=== PATIENT | male | born 1945 | race African-American/Black ===

== ENCOUNTER 2018-07-29 15:17 | Emergency (ER) | payer MEDICARE, OTHER ==
[2018-07-29] MEDS ORDERED: RINGERS SOLUTION,LACTATED 1,000 ML IV ONE (16:01)
--- NOTE | 2018-07-29 16:41 | ER Document Report ---
ED General <YANET BALDWIN - Last Filed: 07/30/18 00:16> - General Mode of Arrival: Ambulatory Information source: Patient, [facility] Records TRAVEL OUTSIDE OF THE [place] IN LAST 30 DAYS: No - HPI Onset: Yesterday Onset/Duration: Sudden, Gone Quality of pain: No pain Severity: None Pain Level: Denies Associated symptoms: Nausea - Resolved, Vomiting - Resolved, Shortness of breath - Resolved, Weakness. denies: Chest pain, Chills, Nonproductive cough, Productive cough, Diarrhea, Fever Exacerbated by: Denies Relieved by: Denies Similar symptoms previously: No Recently seen / treated by doctor: No <OCTAVIA BRO - Last Filed: 07/30/18 15:10> - General Chief Complaint: Fall Injury Stated Complaint: FALL Time Seen by Provider: 07/29/18 15:53 [facility] - Follow up as needed Notes: 73-year-old male with hypertension, type 2 diabetes, hyperlipidemia presents with complaint of weakness. Patient states that last night he had an episode of vomiting and shortness of breath. He states that he threw up all over the bathroom and then lowered himself to the floor. He denies falling, hitting his head, loss of consciousness. He states that when he went to bed he also had another experience of nausea and shortness of breath and describes deep heavy breathing that resolved on its own. Today the patient's only complaint is weakness. He denies headache, chest pain, shortness of breath, palpitations, abdominal pain, diarrhea, decreased appetite. Patient states that he came in to day because his daughter "fussed at me". Patient does smoke approximately 3 cigarettes/day. He repeatedly states "I am in perfect health, I feel hung over but I have not drank in 30 years" (OCTAVIA BRO) - Related Data Allergies/Adverse Reactions: No Known Allergies Allergy (Verified 07/29/18 15:21) Past Medical History - General Information source: Patient, [facility] Records - Social History Smoking Status: Current Every Day Smoker Cigarette use (# per day): Yes - 1 Smoking Education Provided: Yes - Smoking cessation counseling was provided for 4 minutes at the bedside Frequency of alcohol use: None Drug Abuse: None Lives with: Family Family History: Reviewed & Not Pertinent Patient has suicidal ideation: No Patient has homicidal ideation: No - Past Medical History Cardiac Medical History: Reports: Hx Hypercholesterolemia, Hx Hypertension Endocrine Medical History: Reports: Hx Diabetes Mellitus Type 2 Renal/ Medical History: Denies: Hx Peritoneal Dialysis Malignancy Medical History: Reports Hx Prostate Cancer Musculoskeletal Medical History: Reports Hx Arthritis Past Surgical History: Reports: Hx Abdominal Surgery - Immunizations Hx Diphtheria, Pertussis, Tetanus Vaccination: Yes <OCTAVIA BRO - Last Filed: 07/30/18 15:10> Review of Systems <OCTAVIA BRO - Last Filed: 07/30/18 15:10> - Review of Systems Notes: REVIEW OF SYSTEMS: CONSTITUTIONAL : Denies fever, chills, or sweats. Denies weight loss, recent hospitalizations. EENT: Denies visual changes, eye pain. Denies sore throat, oral lesions, difficulty swallowing. CARDIOVASCULAR: Denies chest pain. Denies palpitations. Denies lower extremity edema. RESPIRATORY: Denies cough. Denies shortness of breath, wheezing. GASTROINTESTINAL: Denies abdominal pain or distention. Denies nausea, vomiting, or diarrhea. Denies blood in vomitus, stools, or per rectum. Denies black, tarry stools. Denies constipation. GENITOURINARY: Denies difficulty urinating, painful urination, frequency, blood in urine, testicular pain or penile discharge. MUSCULOSKELETAL: Denies back or neck pain or stiffness. Denies joint pain or swelling. SKIN: Denies rash, lesions or sores. HEMATOLOGIC : Denies easy bruising or bleeding. LYMPHATIC: Denies swollen glands. NEUROLOGICAL: Denies confusion or altered mental status. Denies loss of consciousness. Denies dizziness or lightheadedness. Denies headache. Denies paralysis. Denies problems difficulty with ambulation, slurred speech. Denies sensory loss, numbness, or tingling. Denies seizures. PSYCHIATRIC: Denies anxiety or stress. Denies depression, suicidal ideation, or (OCTAVIA BRO) Physical Exam - Vital signs Interpretation: Tachycardic <OCTAVIA BRO - Last Filed: 07/30/18 15:10> - Vital signs Vitals: Temp Pulse Resp BP Pulse Ox 98.7 F 129 H 18 140/85 H 100 07/29/18 15:26 07/29/18 15:26 07/29/18 15:26 07/29/18 15:26 07/29/18 15:26 - Notes Notes: PHYSICAL EXAMINATION: GENERAL: Well-appearing, well-nourished and in no acute distress. HEAD: Atraumatic, normocephalic. EYES: Pupils equal round and reactive to light, extraocular movements intact, sclera anicteric, conjunctiva are normal. ENT: Nares patent, oropharynx clear without exudates. Moist mucous membranes. NECK: Normal range of motion, supple without lymphadenopathy LUNGS: Breath sounds clear to auscultation bilaterally and equal. No wheezes rales or rhonchi. HEART: Tachycardic, regular rhythm without murmurs ABDOMEN: Soft, nontender, nondistended abdomen. No guarding, no rebound. No masses appreciated. Musculoskeletal: Normal range of motion, no pitting or edema. No cyanosis. NEUROLOGICAL: Cranial nerves grossly intact. Normal speech, normal gait. Normal sensory, motor exams PSYCH: Normal mood, normal affect. SKIN: Warm, Dry, normal turgor, no rashes or lesions noted. (OCTAVIA BRO) Course - Laboratory Result Diagrams: 07/29/18 17:20 07/29/18 19:37 <YANET BALDWIN - Last Filed: 07/30/18 00:16> - Laboratory Result Diagrams: 07/29/18 17:20 07/29/18 19:37 - Diagnostic Test Radiology reviewed: Image reviewed, Reports reviewed - EKG Interpretation by Pr EKG shows normal: Sinus rhythm Rate: Tachycardia Rhythm: NSR When compared to previous EKG there are: No significant change - Second EKG performed at 8:04 PM shows the patient to be in sinus tachycardia with a rate of 100. <OCTAVIA BRO - Last Filed: 07/30/18 15:10> - Re-evaluation Re-evalutation: 07/30/18 00:16 Repeat troponin 0 0.047. No further symptoms. [facility] patient will be discharged to home. (YANET BALDWIN) 07/29/18 21:08 Laboratory 07/29/18 07/29/18 07/29/18 17:20 17:20 17:20 WBC 16.1 H RBC 3.20 L Hgb 9.0 L Hct 26.9 L MCV 84 MCH 28.0 MCHC 33.4 RDW 13.8 Plt Count 263 Seg Neutrophils % 85.7 H Lymphocytes % 7.8 L Monocytes % 6.1 Eosinophils % 0.0 Basophils % 0.4 Absolute Neutrophils 13.8 H Absolute Lymphocytes 1.3 Absolute Monocytes 1.0 Absolute Eosinophils 0.0 Absolute Basophils 0.1 D-Dimer VBG pH VBG pCO2 VBG HCO3 VBG Base Excess Sodium 138.2 Potassium 5.1 H Chloride 97 L Carbon Dioxide 36 H Anion Gap 5 BUN 42 H Creatinine 1.38 H Est GFR ( Amer) > 60 Est GFR (Non-Af Amer) 51 L Glucose 102 Calcium 10.3 H Total Bilirubin 0.1 L Direct Bilirubin 0.1 Neonat Total Bilirubin Not Reportable Neonat Direct Bilirubin Not Reportable Neonat Indirect Bili Not Reportable AST 28 ALT 22 Alkaline Phosphatase 76 Creatine Kinase 169 CK-MB (CK-2) 0.88 Troponin I 0.047 NT-Pro-B Natriuret Pep 182 Total Protein 6.5 Albumin 3.5 07/29/18 07/29/18 07/29/18 17:20 17:20 19:37 WBC RBC Hgb Hct MCV MCH MCHC RDW Plt Count Seg Neutrophils % Lymphocytes % Monocytes % Eosinophils % Basophils % Absolute Neutrophils Absolute Lymphocytes Absolute Monocytes Absolute Eosinophils Absolute Basophils D-Dimer 0.42 VBG pH 7.44 H VBG pCO2 53.7 VBG HCO3 35.6 H VBG Base Excess 10.0 Sodium Potassium Chloride Carbon Dioxide Anion Gap BUN Creatinine Est GFR ( Amer) Est GFR (Non-Af Amer) Glucose Calcium Total Bilirubin Direct Bilirubin Neonat Total Bilirubin Neonat Direct Bilirubin Neonat Indirect Bili AST ALT Alkaline Phosphatase Creatine Kinase CK-MB (CK-2) Troponin I 0.058 NT-Pro-B Natriuret Pep Total Protein Albumin 07/29/18 19:37 WBC RBC Hgb Hct MCV MCH MCHC RDW Plt Count Seg Neutrophils % Lymphocytes % Monocytes % Eosinophils % Basophils % Absolute Neutrophils Absolute Lymphocytes Absolute Monocytes Absolute Eosinophils Absolute Basophils D-Dimer VBG pH VBG pCO2 VBG HCO3 VBG Base Excess Sodium 138.6 Potassium 4.2 Chloride 96 L Carbon Dioxide 35 H Anion Gap 8 BUN 42 H Creatinine 1.29 H Est GFR ( Amer) > 60 Est GFR (Non-Af Amer) 55 L Glucose 96 Calcium 10.2 Total Bilirubin Direct Bilirubin Neonat Total Bilirubin Neonat Direct Bilirubin Neonat Indirect Bili AST ALT Alkaline Phosphatase Creatine Kinase CK-MB (CK-2) Troponin I NT-Pro-B Natriuret Pep Total Protein Albumin Chest X-Ray 07/29/18 16:01 IMPRESSION: NO ACUTE RADIOGRAPHIC FINDING IN THE CHEST. Temp Pulse Resp BP Pulse Ox 98.7 F 129 H 16 127/85 H 100 07/29/18 15:26 07/29/18 15:26 07/29/18 18:00 07/29/18 16:30 07/29/18 18:00 73-year-old male presents with complaint of weakness. He describes the weakness as feeling hung over but states he has not drank in 30 years. Patient does state that yesterday evening he had a sudden onset of vomiting and shortness of breath which resolved and he went to sleep. Patient states that this morning after telling his daughter what had occurred she urged him to come to the emergency department. Patient has no current chest pain, shortness of breath or any other complaint except for weakness which he reports has improved after receiving IV fluids. Cardiac workup was obtained and patient had a indeterminate troponin. Initial troponin is 0.047 and delta troponin is 0.058. Patient continues to deny chest pain, shortness of breath. I did speak to the hospitalist regarding admission for observation for ACS. At this time we will repeat a third troponin at 2300 and if this is still uptrending we will admit the patient. CBC does show a leukocytosis of 16 without a definitive source of infection. Patient's initial CMP showed a mild AK I which has im proved after fluids. Initial creatinine was 1.48 and repeat creatinine is 1.29. D-dimer negative. Patient's tachycardia has improved and is now 100 which is improved from 130 when he initially arrived. Patient states that he is always tachycardic around doctors. Patient signed out to Dr Baldwin with troponin pending. 07/29/18 23:57 (OCTAVIA BRO) - Vital Signs Vital signs: Temp Pulse Resp BP Pulse Ox 98.8 F 129 H 14 131/81 H 100 07/30/18 00:15 07/29/18 15:26 07/30/18 00:01 07/30/18 00:01 07/30/18 00:01 - Laboratory Laboratory results interpreted by me: 07/29/18 07/29/1807/29/19 17:20 17:20 17:20 WBC 16.1 H RBC 3.20 L Hgb 9.0 L Hct 26.9 L Seg Neutrophils % 85.7 H Lymphocytes % 7.8 L Absolute Neutrophils 13.8 H VBG pH 7.44 H VBG HCO3 35.6 H Potassium 5.1 H Chloride 97 L Carbon Dioxide 36 H BUN 42 H Creatinine 1.38 H Est GFR (Non-Af Amer) 51 L Calcium 10.3 H Total Bilirubin 0.1 L 07/29/18 19:37 WBC RBC Hgb Hct Seg Neutrophils % Lymphocytes % Absolute Neutrophils VBG pH VBG HCO3 Potassium Chloride 96 L Carbon Dioxide 35 H BUN 42 H Creatinine 1.29 H Est GFR (Non-Af Amer) 55 L Calcium Total Bilirubin Discharge <YANET BALDWIN - Last Filed: 07/30/18 00:16> <OCTAVIA BRO - Last Filed: 07/30/18 15:10> - Discharge Clinical Impression: Weakness, AQUILES (acute kidney injury) Vomiting Qualifiers: Vomiting type: unspecified Vomiting Intractability: non-intractable Nausea presence: without nausea Qualified Code(s): R11.11 - Vomiting without nausea Diabetes mellitus type II, controlled Qualifiers: Diabetes mellitus dice manager insulin use: without dice manager use Diabetes mellitus complication status: without complication Qualified Code(s): E11.9 - Type 2 diabetes mellitus without complications Condition: Good Disposition: HOME, SELF-CARE Additional Instructions: Today we did not see any signs of a heart attack. Your troponin was indeterminate, this means that there was a possibility of your symptoms devel oping into a heart attack however we continued to follow it and it did not develop into a heart attack. You should follow-up with your doctor and they will likely want to do a stress test to investigate your weakness. Return if your weakness gets worse, you develop chest pain or any new or concerning symptoms. Forms: Smoking Cessation Education [facility]errals: [facility] [[facility]] - Follow up as needed
--- NOTE | 2018-07-29 16:53 | RADIOLOGY REPORT (SQ) ---
EXAM DESCRIPTION: CHEST 2 VIEWS COMPLETED DATE/TIME: 07/29/2018 4:44 pm REASON FOR STUDY: sob COMPARISON: 04/22/2007 EXAM PARAMETERS: NUMBER OF VIEWS: two views TECHNIQUE: Digital Frontal and Lateral radiographic views of the chest acquired. RADIATION DOSE: NA LIMITATIONS: none FINDINGS: LUNGS AND PLEURA: No opacities, masses or pneumothorax. No pleural effusion. MEDIASTINUM AND HILAR STRUCTURES: No masses or contour abnormalities. HEART AND VASCULAR STRUCTURES: Heart normal size. No evidence for failure. BONES: No acute findings. HARDWARE: None in the chest. OTHER: No other significant finding. IMPRESSION: NO ACUTE RADIOGRAPHIC FINDING IN THE CHEST. TECHNICAL DOCUMENTATION: JOB ID: [id number] [employer]- All Rights Reserved Reading location - IP/workstation name: [email or web address]
[2018-07-29 17:29] LABS: VENOUS BLOOD HCO3 35.6 mmol/L (20-32); VENOUS BLOOD PCO2 53.7 mmHg (35-63); VENOUS BLOOD PH 7.44 (7.30-7.42)
[2018-07-29 17:31] LABS: ABSOLUTE BASOPHILS # (AUTO) 0.1 10^3/uL (0.0-0.2); ABSOLUTE LYMPHOCYTES (AUTO) 1.3 10^3/uL (0.5-4.7); ABSOLUTE NEUT (AUTO) 13.8 10^3/uL (1.7-8.2); BASOPHILS % (AUTO) 0.4 % (0-2); HEMATOCRIT 26.9 % (37.9-51.0); LYMPHOCYTES % (AUTO) 7.8 % (13-45); MEAN CORPUSCULAR HGB CONC 33.4 g/dL (32.0-36.0); MEAN CORPUSCULAR VOLUME 84 fl (80-97); MONOCYTES % (AUTO) 6.1 % (3-13); PLATELET COUNT 263 10^3/uL (150-450); RED CELL DISTRIBUTION WIDTH 13.8 % (11.5-14.0); SEGMENTED NEUTROPHILS % (AUTO) 85.7 % (42-78); TOTAL CELLS COUNTED % (AUTO) 100 %; WHITE BLOOD COUNT 16.1 10^3/uL (4.0-10.5)
[2018-07-29 17:46] LABS: ALANINE AMINOTRANSFERASE 22 U/L (21-72); ALBUMIN 3.5 g/dL (3.5-5.0); ALKALINE PHOSPHATASE 76 U/L (38-126); ANION GAP 5 (5-19); ASPARTATE AMINO TRANSFERASE 28 U/L (17-59); BILIRUBIN,DIRECT 0.1 mg/dL (0.0-0.4); BILIRUBIN,TOTAL 0.1 mg/dL (0.2-1.3); BLOOD UREA NITROGEN 42 mg/dL (7-20); CALCIUM 10.3 mg/dL (8.4-10.2); CARBON DIOXIDE 36 mmol/L (22-30); CHLORIDE 97 mmol/L (98-107); CREATINE KINASE 169 U/L (55-170); GLUCOSE 102 mg/dL (75-110); POTASSIUM 5.1 mmol/L (3.6-5.0); SODIUM 138.2 mmol/L (137-145); TOTAL PROTEIN 6.5 g/dL (6.3-8.2)
[2018-07-29 17:58] LABS: CREATINE KINASE MB 0.88 ng/mL (<4.55)
[2018-07-29 18:01] LABS: TROPONIN I 0.047 ng/mL
[2018-07-29] MEDS ORDERED: NORMAL SALINE 1000 ML 1,000 ML IV ONE ×2 (18:36→21:02)
[2018-07-29 20:18] LABS: ANION GAP 8 (5-19); BLOOD UREA NITROGEN 42 mg/dL (7-20); CALCIUM 10.2 mg/dL (8.4-10.2); CARBON DIOXIDE 35 mmol/L (22-30); CHLORIDE 96 mmol/L (98-107); GLUCOSE 96 mg/dL (75-110); POTASSIUM 4.2 mmol/L (3.6-5.0); SODIUM 138.6 mmol/L (137-145)
--- NOTE | 2018-07-29 20:50 | EKG REPORT ---
SEVERITY:- OTHERWISE NORMAL ECG - SINUS TACHYCARDIA : Confirmed by: Bee Osborn MD 29-Jul-2018 20:49:29
--- NOTE | 2018-07-29 20:50 | EKG REPORT ---
SEVERITY:- OTHERWISE NORMAL ECG - SINUS TACHYCARDIA : Confirmed by: Bee Osborn MD 29-Jul-2018 20:49:34
[2018-07-29] MEDS ORDERED: ASPIRIN 81 MG TABLET, CHEWABLE PO ONE (21:01)
[2018-07-30 00:48] VITALS: BP 131/81
== END 2018-07-30 00:40 | disposition home or self-care (01) ==
LOC: ER 15:17
DX: R53.1 Weakness (principal); N17.9 Acute kidney failure, unspecified; R11.11 Vomiting without nausea; E11.9 Type 2 diabetes mellitus without complications; F17.210 Nicotine dependence, cigarettes, uncomplicated; E78.00 Pure hypercholesterolemia, unspecified; I10 Essential (primary) hypertension; Z85.46 Personal history of malignant neoplasm of prostate
CPT/HCPCS: 93005; 99406; 99285; 96360; 96361; 36415; 82553; 82550; 85025; 80048; 80053; 84484; 85379; 82803; 83880; 71046; 93010; A9270; J7030; J7120

== ENCOUNTER 2018-07-30 11:07 | Inpatient (IN) | payer OTHER, MEDICARE ==
--- NOTE | 2018-07-30 11:16 | ER Document Report ---
ED General - General TRAVEL OUTSIDE OF THE [place] IN LAST 30 DAYS: No - General Stated Complaint: DIZZINESS,FALL Time Seen by Provider: 07/30/18 11:12 Primary Care Provider: AGUSTÍN WOODWARD [Primary Care Provider] - Follow up as needed - HPI Notes: Patient is a 73-year-old male with a history of hypertension, type 2 diabetes, hyperlipidemia who presents the emergency department complaining of dizziness and syncopal episode upon standing this morning and having "jet black" stool beginning last night into today. Patient was evaluated yesterday and had an unremarkable cardiac workup at that time. He was shown to be anemic with a hemoglobin of 9. Patient states that he does not believe he hit his head at all during a syncopal episode. He is accompanied by his granddaughter. Patient states that he is otherwise been eating and drinking without difficulty. He is urinating normally. He has no concern of pain anywhere. Patient states that he feels well until he tries to stand up. Denies drug allergies or history of GI bleeding in the past. Denies any headache, fever, neck pain, changes in vision/speech/mentation/hearing, URI, sore throat, chest pain, palpitations, syncope, cough, shortness of breath, wheeze, dyspnea, abdominal pain, nausea/vomiting, urinary retention, dysuria, hematuria, loss of control of bowel or bladder, numbness/tingling, saddle anesthesia, muscle paralysis/weakness, or rash. No alcohol in 30 years. He was on NSAIDs twice daily for 1 year but stopped taking it about 2mos ago. yesterday's HPI: "73-year-old male with hypertension, type 2 diabetes, hyperlipidemia presents with complaint of weakness. Patient states that last night he had an episode of vomiting and shortness of breath. He states that he threw up all over the bathroom and then lowered himself to the floor. He denies falling, hitting his head, loss of consciousness. He states that when he went to bed he also had another experience of nausea and shortness of breath and describes deep heavy breathing that resolved on its own. Today the patient's only complaint is weakness. He denies headache, chest pain, shortness of breath, palpitations, abdominal pain, diarrhea, decreased appetite. Patient states that he came in today because his daughter "fussed at me". Patient does smoke approximately 3 cigarettes/day. He repeatedly states "I am in perfect health, I feel hung over but I have not drank in 30 years" " (DIGNA JACKSON) - Related Data Allergies/Adverse Reactions: No Known Allergies Allergy (Verified 07/29/18 15:21) Past Medical History - Social History Smoking Status: Never Smoker Family History: Reviewed & Not Pertinent - Past Medical History Cardiac Medical History: Reports: Hx Hypercholesterolemia, Hx Hypertension Endocrine Medical History: Reports: Hx Diabetes Mellitus Type 2 Renal/ Medical History: Denies: Hx Peritoneal Dialysis Malignancy Medical History: Reports Hx Prostate Cancer Musculoskeletal Medical History: Reports Hx Arthritis Past Surgical History: Reports: Hx Abdominal Surgery - Immunizations Hx Diphtheria, Pertussis, Tetanus Vaccination: Yes Review of Systems - Review of Systems -: Yes All other systems reviewed and negative Physical Exam - Vital signs Vitals: Pulse BP 109 H 121/66 07/30/18 11:31 07/30/18 11:31 - Notes Notes: PHYSICAL EXAMINATION: GENERAL: Well-appearing, well-nourished and in no acute distress. A&Ox4. Answers questions appropriately. HEAD: Atraumatic, normocephalic. Non-tender. No baker sign EYES: Pupils equal round and reactive to light, extraocular movements intact, sclera anicteric, conjunctiva are normal. No raccoon eyes/entrapment ENT: EAC clear b/l. TM's intact b/l without erythema, fluid, or perforation. Nares patent and without discharge. oropharynx clear without exudates. No tonsilar hypertrophy or erythema. Moist mucous membranes. No sinus tenderness. No hemotympanum/CSF discharge. NECK: Normal range of motion, supple without lymphadenopathy. No rigidity. No midline tenderness. Chest: No flail chest. equal rise/fall. Non-tender LUNGS: Breath sounds clear to auscultation bilaterally and equal. No wheezes rales or rhonchi. HEART: Regular rate and rhythm without murmurs, rubs, gallops. ABDOMEN: Soft, nontender, nondistended abdomen. No guarding, no rebound. Normal bowel sounds present. No CVA tenderness bilaterally. Rectal: + melena, black tarry stool, heme +. Non-tender. Musculoskeletal: Ext's b/l: FROM to passive/active. Strength 5+/5. No deficits noted. No bony tenderness of extremities. Back: FROM to passive/active. Strength 5+/5. No vertebral point tenderness, stepoffs, or deformities. No other bony tenderness or ecchymosis. Extremities: No cyanosis, clubbing, or edema b/l. Peripheral pulses 2+. Capillary refill less than 2 seconds. NEUROLOGICAL: NIH 0. GCS 15. Cranial nerves grossly intact. Normal speech, normal gait. Normal sensory, motor exams. Reflexes 2+ b/l. BISI's negative. Pronator drift negative. Heel/ann, finger/nose wnl. PSYCH: Normal mood, normal affect. SKIN: Warm, Dry, normal turgor, no rashes or lesions noted. (DIGNA JACKSON) Course - Re-evaluation Re-evalutation: 07/30/18 12:10 I personally and independently obtained patient history and examined the patient and have reviewed the APC's note, reviewed, discussed and agree with their assessment and plan. HISTORY OF PRESENT ILLNESS: Patient is a 73-year-old male that presents to the emergency department for chief complaint of lightheadedness and black stools. Black stools reportedly began this morning. ROS: Constitutional: Negative for fever. Cardiovascular: Negative for chest pain. Respiratory: Negative for shortness of breath. Gastrointestinal: Negative for vomiting or abdominal pain Musculoskeletal: Negative for arm, leg or back pain Skin: Negative for rash. Neurological: Negative for weakness or numbness. Unless otherwise stated in this report the patient's positive and negative responses for review of systems for constitutional, eyes, ENT, cardiovascular, respiratory, gastrointestinal, neurological, genitourinary, musculoskeletal, and integumentary systems and related systems to the presenting problem are either as stated in the HPI or were not pertinent or were negative for the symptoms and/or complaints related to the presenting medical problem. PHYSICAL EXAMINATION: Vital signs reviewed, nursing noted reviewed. GENERAL: Well-appearing, well-nourished and in no acute distress. HEAD: Atraumatic, normocephalic. EYES: Eyes appear normal, conjunctiva are pale ENT: nares patent, oropharynx clear without exudates. Moist mucous membranes. NECK: Normal range of motion, supple without lymphadenopathy LUNGS: Breath sounds clear to auscultation bilaterally and equal. No wheezes rales or rhonchi. HEART: Tachycardic rate and regular rhythm without murmurs ABDOMEN: Protuberant, soft, nontender, normoactive bowel sounds. No rebound, guarding, or rigidity. No masses appreciated. EXTREMITIES: Nontender, good range of motion, no pitting or edema. NEUROLOGICAL: No focal neurological deficits. Moves all extremities spontaneously Motor and sensory grossly intact on exam. PSYCH: Normal mood, normal affect. SKIN: Warm, Dry, normal turgor, no rashes or lesions noted on exposed MEDICAL DECISION MAKING: Patient seen and evaluated. He is in no acute distress and denies any pain currently. His abdomen is protuberant and he had a large black bowel movement prior to my entering the room. Patient's blood pressure has been declining and he is slightly tachycardic. He was ordered blood transfusion for upper GI bleeding. I discussed his care with Dr. Simmons who agrees to perform upper endoscopy to further visualize source of bleeding. Patient has been ordered IV fluids as well as Protonix bolus and drip. We will continue to follow. Plan to admit to ICU Please review detail APC documentation. *Note is created using voice recognition software and may contain spelling, syntax or grammatical errors. (YANET ESPINOZA) 07/30/18 12:20 Patient is a 73-year-old male who presents with orthostasis suspect secondary to upper GI bleed and significant anemia. Vitals are currently holding in the 90s systolic over 50s systolic and heart rate at 94 with respiratory of 19. Dr. Espinoza was consulted who also evaluated the patient as above. General surgery, Dr. Simmons, will perform an EGD as long as medicine is willing to admit to the ICU for stabilization. I did speak with Dr. Hutchinson who is excepted patient to the ICU. Patient has 2 units of blood being emergency released at this time. Other workup is still pending. Patient and family in agreement with this plan. (DIGNA JACKSON) - Vital Signs Vital signs: Temp Pulse Resp BP Pulse Ox 109 H 121/66 07/30/18 11:31 07/30/18 11:31 Critical Care Note - Critical Care Note Total time excluding time spent on procedures (mins): 38 Discharge - Discharge Admitting Provider: Evangelina (Hospitalist) Unit Admitted: ICU - Discharge Clinical Impression: Upper GI bleed Condition: Stable Disposition: ADMITTED INPATIENT [facility] [[facility] - Follow up as needed
[2018-07-30] MEDS ORDERED: NORMAL SALINE 1000 ML 1,000 ML IV ONE (11:39)
[2018-07-30] MEDS ORDERED: PANTOPRAZOLE SODIUM 40 MG VIAL IV ONE (11:48)
[2018-07-30] MEDS ORDERED: PANTOPRAZOLE SODIUM 40 MG VIAL IV PRN (11:48)
[2018-07-30] MEDS ORDERED: NORMAL SALINE 250 ML IV PRN ×3 (12:01→16:04)
--- NOTE | 2018-07-30 12:32 | RADIOLOGY REPORT (SQ) ---
EXAM DESCRIPTION: CHEST SINGLE VIEW COMPLETED DATE/TIME: 07/30/2018 12:15 pm REASON FOR STUDY: syncope COMPARISON: Chest films 07/29/2018, 04/22/2007 EXAM PARAMETERS: NUMBER OF VIEWS: One view. TECHNIQUE: Single frontal radiographic view of the chest acquired. RADIATION DOSE: NA LIMITATIONS: None. FINDINGS: LUNGS AND PLEURA: No opacities, masses or pneumothorax. No pleural effusion. MEDIASTINUM AND HILAR STRUCTURES: No masses. Contour normal. HEART AND VASCULAR STRUCTURES: Heart normal in size. Normal vasculature. BONES: No acute findings. HARDWARE: None in the chest. OTHER: No other significant finding. IMPRESSION: NO ACUTE RADIOGRAPHIC FINDING IN THE CHEST. TECHNICAL DOCUMENTATION: JOB ID: [id number] [employer]- All Rights Reserved Reading location - IP/workstation name: [email or web address]
[2018-07-30 13:30] LABS: ABSOLUTE LYMPHOCYTES (AUTO) 1.3 10^3/uL (0.5-4.7); ABSOLUTE MONOCYTES (AUTO) 0.8 10^3/uL (0.1-1.4); ABSOLUTE NEUT (AUTO) 13.2 10^3/uL (1.7-8.2); BASOPHILS % (AUTO) 0.1 % (0-2); EOSINOPHILS % (AUTO) 0.1 % (0-6); HEMATOCRIT 21.9 % (37.9-51.0); LYMPHOCYTES % (AUTO) 8.5 % (13-45); MEAN CORPUSCULAR HEMOGLOBIN 28.3 pg (27.0-33.4); MEAN CORPUSCULAR HGB CONC 32.8 g/dL (32.0-36.0); MEAN CORPUSCULAR VOLUME 86 fl (80-97); PLATELET COUNT 215 10^3/uL (150-450); RED BLOOD COUNT 2.54 10^6/uL (4.35-5.55); SEGMENTED NEUTROPHILS % (AUTO) 86.3 % (42-78); TOTAL CELLS COUNTED % (AUTO) 100 %; WHITE BLOOD COUNT 15.3 10^3/uL (4.0-10.5)
[2018-07-30 13:37] LABS: HEMOGLOBIN 7.2 g/dL (13.5-17.0); PARTIAL THROMBOPLASTIN TIME 28.5 SEC (23.5-35.8); PROTHROMBIN TIME 14.8 SEC (11.4-15.4)
[2018-07-30] MEDS ORDERED: DIPHENHYDRAMINE HCL 50 MG/ML VIAL ONE (13:40)
[2018-07-30] MEDS ORDERED: FENTANYL CITRATE INJ/PF 100 MCG/2 ML AMPUL ONE (13:40)
[2018-07-30] MEDS ORDERED: ONDANSETRON HCL INJ/PF 4 MG/2 ML SDV ONE (13:40)
[2018-07-30] MEDS ORDERED: EPINEPHRINE INJ 1 MG/10 ML DISP.SYRIN ONE (13:41)
[2018-07-30] MEDS ORDERED: FLUMAZENIL INJ 0.5 MG/5 ML VIAL ONE (13:41)
[2018-07-30] MEDS ORDERED: GLUCAGON,HUMAN RECOMB 1 MG INJ ONE (13:41)
[2018-07-30] MEDS ORDERED: NALOXONE HCL INJ/PF 0.4 MG/1 ML SDV ONE (13:41)
[2018-07-30 13:51] LABS: ALANINE AMINOTRANSFERASE 24 U/L (21-72); ALBUMIN 2.5 g/dL (3.5-5.0); ALKALINE PHOSPHATASE 54 U/L (38-126); ANION GAP 5 (5-19); ASPARTATE AMINO TRANSFERASE 21 U/L (17-59); BLOOD UREA NITROGEN 39 mg/dL (7-20); CALCIUM 9.1 mg/dL (8.4-10.2); CHLORIDE 112 mmol/L (98-107); GLUCOSE 119 mg/dL (75-110); SODIUM 137.6 mmol/L (137-145); TOTAL PROTEIN 4.9 g/dL (6.3-8.2)
[2018-07-30 13:54] LABS: BILIRUBIN,TOTAL < 0.1 mg/dL (0.2-1.3)
[2018-07-30] MEDS ORDERED: DEXTROSE 40% GEL 15 GM TUBE PO PRN ×2 (13:59)
[2018-07-30] MEDS ORDERED: GLUCAGON,HUMAN RECOMB 1 MG INJ SUBCUT PRN (13:59)
[2018-07-30] MEDS ORDERED: DEXTROSE 50%-WATER 25 GM/50 ML DISP.SYRIN IV PRN ×2 (13:59)
[2018-07-30 14:26] LABS: CARBON DIOXIDE 21 mmol/L (22-30)
[2018-07-30 14:38] LABS: APPEARANCE,URINE CLEAR; BILIRUBIN,URINE NEGATIVE (NEGATIVE); COLOR,URINE YELLOW; GLUCOSE, URINE NEGATIVE (NEGATIVE); KETONES,URINE NEGATIVE (NEGATIVE); LEUKOCYTE ESTERASE,URINE NEGATIVE (NEGATIVE); NITRITE,URINE NEGATIVE (NEGATIVE); PROTEIN,URINE NEGATIVE (NEGATIVE); URINE SPECIFIC GRAVITY 1.015; UROBILINOGEN,URINE NEGATIVE mg/dL (<2.0)
--- NOTE | 2018-07-30 14:56 | RADIOLOGY REPORT (SQ) ---
EXAM DESCRIPTION: CT HEAD WITHOUT COMPLETED DATE/TIME: 07/30/2018 2:29 pm REASON FOR STUDY: syncope COMPARISON: CT brain 02/06/2007, 04/22/2007 TECHNIQUE: Axial images acquired through the brain without intravenous contrast. Images reviewed wi th bone, brain and subdural windows. Additional sagittal and coronal reconstructions were generated. Images stored on PACS. All CT scanners at this facility use dose modulation, iterative reconstruction, and/or weight based d osing when appropriate to reduce radiation dose to as low as reasonably achievable (ALARA). [facility]: Dose Right [facility]: CareDose [facility]: Dose Right [facility]: Teradose 4D [facility]: [employer] RADIATION DOSE: CT Rad equipment meets quality standard of care and radiation dose reduction techniq ues were employed. CTDIvol: 53.2 mGy. DLP: 1124 mGy-cm. mGy. LIMITATIONS: None. FINDINGS: VENTRICLES: Normal size and contour. CEREBRUM: No masses. No hemorrhage. No midline shift. No evidence for acute infarction. Normal gra y/white matter differentiation. No areas of low density in the white matter. CEREBELLUM: No masses. No hemorrhage. No alteration of density. No evidence for acute infarction. 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 This is unchanged from studies dating back to 2006 and is a benign finding. ORBITS AND GLOBE: No intra- or extraconal masses. Normal contour of globe without masses. CALVARIUM: No fracture. PARANASAL SINUSES: No fluid or mucosal thickening. SOFT TISSUES: No mass or hematoma. OTHER: No other significant finding. IMPRESSION: NORMAL BRAIN CT WITHOUT CONTRAST. EVIDENCE OF ACUTE STROKE: NO. COMMENT: Quality ID # [id number]: Final reports with documentation of one or more dose reduction techniques (e.g., Automated exposure control, adjustment of the mA and/or kV according to patient size, use of iterative reconstruction technique) TECHNICAL DOCUMENTATION: JOB ID: [id number] [employer]- All Rights Reserved Reading location - IP/workstation name: [email or web address]
--- NOTE | 2018-07-30 15:25 | EKG REPORT ---
SEVERITY:- BORDERLINE ECG - SINUS RHYTHM BORDERLINE T WAVE ABNORMALITIES, INFEROLATERAL LEADS. : Confirmed by: Randall Soriano MD 30-Jul-2018 15:25:16
[2018-07-30] MEDS: MIDAZOLAM 2 MG/2 ML INJ ONE ×3 (15:48→15:59)
--- NOTE | 2018-07-30 16:41 | Operative Report ---
Operative Report DATE OF SURGERY: 07/30/18 PREOPERATIVE DIAGNOSIS: Acute GI bleed, upper source POSTOPERATIVE DIAGNOSIS: Same, large lesser curvature ulcer with active bleeding from the marginal artery OPERATION: 1. Esophagogastroduodenoscopy. 2. Clip application to active arterial bleeder on the margin of the lesser curvature gastric ulcer. 3. Epinephrine injection of lesser curvature gastric ulcer SURGEON: LIZBETH ROSE ANESTHESIA: Moderate Sedation TISSUE REMOVED OR ALTERED: None COMPLICATIONS: None ESTIMATED BLOOD LOSS: 50 cc INTRAOPERATIVE FINDINGS: See below PROCEDURE: The patient was moved from his emergency department station to room 1 with the endoscopy team and arrived at bedside. Appropriate monitoring devices were attached. Appropriate level of conscious sedation was induced. Surgical plan surgical timeout were conducted. The hypopharynx was anesthetized, the flexible adult upper endoscope was advanced to the oropharynx, down the esophagus. There was some fresh blood as well as clot in the midesophagus. The scope was advanced into the stomach proper. Of note there was no evidence of obvious pathology in the esophagus. The stomach was one third full of blood and clot. On the lesser curve was a 3+ centimeter ulcer, with an active arterial bleeder coming from a marginal we did not attempt to aspirate the blood and clot out at this point but control the arterial bleeder. I did briefly advance the upper endoscope through the pylorus, and the first portion of the duodenum appeared grossly unremarkable. We first elected to proceed with deployment of a small metallic clip onto the artery that was actively bleeding and this was done by successfully retroflexing the upper endoscope in the body of the stomach, then advancing and deployed the clip at the site of bleeding. The bleeding immediately tapered significantly. In the immediate vicinity were several bleeding spots, all arterial but not pumping significantly. Therefore we opted to inject these areas with a total of 4 cc of full-strength epinephrine and this was done in 2 applications of the needle. Once this was accomplished, the bleeding abated. Photos were taken. There was merely clot left. During the procedure the patient did have active hematemesis did not lose his a irway. He maintained good saturations. We elected to withdraw the scope and allow the patient to pass the rest of the clot prograde fashion. The scope was brought in the patient's oropharynx. He tolerated procedure well. He will be transferred to the intensive care unit in guarded condition.
[2018-07-30 17:08] LABS: ABSOLUTE LYMPHOCYTES (AUTO) 1.4 10^3/uL (0.5-4.7); ABSOLUTE NEUT (AUTO) 9.9 10^3/uL (1.7-8.2); BASOPHILS % (AUTO) 0.2 % (0-2); HEMATOCRIT 20.2 % (37.9-51.0); LYMPHOCYTES % (AUTO) 11.6 % (13-45); MEAN CORPUSCULAR HEMOGLOBIN 29.2 pg (27.0-33.4); MEAN CORPUSCULAR HGB CONC 32.9 g/dL (32.0-36.0); MEAN CORPUSCULAR VOLUME 89 fl (80-97); MONOCYTES % (AUTO) 8.2 % (3-13); PLATELET COUNT 158 10^3/uL (150-450); RED BLOOD COUNT 2.27 10^6/uL (4.35-5.55); TOTAL CELLS COUNTED % (AUTO) 100 %; WHITE BLOOD COUNT 12.4 10^3/uL (4.0-10.5)
[2018-07-30 17:12] LABS: HEMOGLOBIN 6.6 g/dL (13.5-17.0)
[2018-07-30] MEDS ORDERED: NORMAL SALINE 1000 ML 1,000 ML IV PRN (19:06)
--- NOTE | 2018-07-30 19:08 | PDOC H&P ---
History of Present Illness Admission Date/PCP: 07/30/18 12:[facility] Patient complains of: Fatigue, shortness of breath, dizziness History of Present Illness: MEET BELL is a 73 year old male history of diabetes mellitus, hypertension, NSAID use, presented to the ED with c/o SOB, dizzines, near syncope. He also reported black stools. Evaluation significant for a drop in his hemoglobin from when he was here yesterday at which time he had complained of shortness of breath and weakness and was ruled out for ID and sent home. Today he returned to the ED for near syncope. Workup significant for a drop in hemoglobin from 9.0 down to 7.2 and then 6.6. Of note is that baseline hemoglobin from 04/09/15 was 12.4. Patient was also found to be hypotensive in the systolic of 90s as well as he was orthostatic. Again, he does have a history of hypertension. He denies abdominal pain. States his symptoms have been going on for about a week. He was taking NSAIDs for arthritis for the past year, but he stopped it about a week ago when someone told him it may cause ulcer. He has been taking Tylenol since then. He was started on packed red blood cells transfusion, surgeon called for EGD, and patient referred to the hospitalist service for admission. Past Medical History Cardiac Medical History: Reports: Hyperlipidema, Hypertension Endocrine Medical History: Reports: Diabetes Mellitus Type 2 Musculoskeltal Medical History: Reports: Arthritis Social History Smoking Status: Current Every Day Smoker Frequency of Alcohol Use: None Hx Recreational Drug Use: No Drugs: None Hx Prescription Drug Abuse: No Family History Family History: Significant for prostate cancer, diabetes mellitus, CVA Parental Family History Reviewed: Yes Children Family History Reviewed: Yes Sibling(s) Family History Reviewed.: Yes Medication/Allergy Home Medications: Amlodipine Besylate [Norvasc 2.5 mg Tablet] 2.5 mg PO DAILY 07/30/18 Atorvastatin Calcium [Lipitor 20 mg Tablet] 20 mg PO DAILY 07/30/18 Citalopram Hydrobromide [Citalopram HBr] 20 mg PO DAILY 07/30/18 Hydrochlorothiazide [Hydrodiuril 12.5 mg Tablet] 12.5 mg PO DAILY 07/30/18 Lisinopril [Prinivil 10 mg Tablet] 10 mg PO DAILY 07/30/18 Metformin HCl [Glucophage 500 mg Tablet] 500 mg PO DAILY 07/30/18 Potassium Chloride [K-Tab ER] 20 meq PO DAILY 07/30/18 Allergies/Adverse Reactions: No Known Allergies Allergy (Verified 07/29/18 15:21) Review of Systems Review of Systems: CONSTITUTIONAL : Fever, chills -- No; unexpalined fatigue -- YES EENT: Denies eye, ear, throat, or mouth pain or symptoms. Denies nasal or sinus congestion or discharge. Denies throat, tongue, or mouth swelling or difficulty swallowing. CARDIOVASCULAR: Denies chest pain. No racing heart RESPIRATORY: Denies cough, no shortness of breath, difficulty breathing. GASTROINTESTINAL: Denies abdominal pain or distention. Denies nausea, vomiting, or diarrhea. No rectal bleeding. GENITOURINARY: Urinary symptoms -- no. MUSCULOSKELETAL: No acute weakness SKIN: Denies rash, lesions or sores. HEMATOLOGIC : Denies easy bruising or bleeding. LYMPHATIC: Denies swollen, enlarged glands. NEUROLOGICAL: New weakness, headaches, slured speach - No PSYCHIATRIC: Changes anxiety or stress, depression, suicidal ideation, or homicidal ideation -- No ALL OTHER SYSTEMS REVIEWED AND NEGATIVE. Physical Exam Vital Signs: Temp Pulse Resp BP Pulse Ox 98.4 F 109 H 22 H 108/78 98 07/30/18 13:56 07/30/18 11:31 07/30/18 13:56 07/30/18 13:56 07/30/18 13:06 Intake & Output 07/29/18 07/30/18 07/31/18 06:59 06:59 06:59 Weight 70 kg GENERAL: Well-developed, well-developed male, no acute distress HEENT: Normocephalic/atraumatic NECK: supple, no JVD CARDIOVASCULAR: RRR, normal S1-S2 LUNGS: CTA bilaterally ABDOMEN: Soft, NT, NL bowel sounds EXTREMITIES: No edema, clubbing, cyanosis NEUROLOGICAL: Alert, oriented x 3, focal weakness Results Laboratory Results: 07/30/18 13:20 07/30/18 13:20 07/30/18 07/30/18 07/30/18 12:55 13:20 13:20 WBC 15.3 H RBC 2.54 L Hgb 7.2 L Hct 21.9 L MCV 86 MCH 28.3 MCHC 32.8 RDW 14.0 Plt Count 215 Seg Neutrophils % 86.3 H Lymphocytes % 8.5 L Monocytes % 5.0 Eosinophils % 0.1 Basophils % 0.1 Absolute Neutrophils 13.2 H Absolute Lymphocytes 1.3 Absolute Monocytes 0.8 Absolute Eosinophils 0.0 Absolute Basophils 0.0 Sodium 137.6 Potassium 5.0 Chloride 112 H Anion Gap 5 BUN 39 H Creatinine 1.01 Est GFR ( Amer) > 60 Est GFR (Non-Af Amer) > 60 Glucose 119 H Calcium 9.1 Total Bilirubin < 0.1 L AST 21 ALT 24 Alkaline Phosphatase 54 Total Protein 4.9 L Albumin 2.5 L Blood Type O POSITIVE Antibody Screen NEGATIVE 07/30/18 13:20 Troponin I < 0.012 Impressions: Chest X-Ray 07/30/18 11:36 IMPRESSION: NO ACUTE RADIOGRAPHIC FINDING IN THE CHEST. Assessment and Plan - Diagnosis (1) Upper GI bleed Is this a current diagnosis for this admission?: Yes Plan: Suspect upper GI bleed given history of NSAIDs use and black stools. Patient to have EGD emergently done. Will treat with IV Protonix, IV fluid. He has received 2 units packed red blood cells. We will follow serial H&H on transfuse further as needed. Advised no more NSAIDs use. (2) Hypertension Is this a current diagnosis for this admission?: Yes Plan: Patient has history of hypertension, but currently hypotensive and orthostatic. This is secondary to GI bleed. Will hold antihypertensives for now. (3) Diabetes mellitus type II, controlled Qualifiers: Diabetes mellitus computer terminal operator insulin use: without m[facility] use Diabetes mellitus complication status: without complication Qualified Code(s): E11.9 - Type 2 diabetes mellitus without complications Is this a current diagnosis for this admission?: Yes Plan: Will hold metformin, will order echogenic and cover with sliding scale insulin. (4) Hyperlipidemia Qualifiers: Hyperlipidemia type: unspecified Qualified Code(s): E78.5 - Hyperlipidemia, unspecified Is this a current diagnosis for this admission?: Yes Plan: Will start atorvastatin when stable and able to tolerate p.o.'s.
[2018-07-30 21:40] LABS: ABSOLUTE LYMPHOCYTES (AUTO) 2.4 10^3/uL (0.5-4.7); ABSOLUTE MONOCYTES (AUTO) 1.6 10^3/uL (0.1-1.4); ABSOLUTE NEUT (AUTO) 13.6 10^3/uL (1.7-8.2); BASOPHILS % (AUTO) 0.2 % (0-2); EOSINOPHILS % (AUTO) 0.1 % (0-6); HEMATOCRIT 26.8 % (37.9-51.0); HEMOGLOBIN 9.3 g/dL (13.5-17.0); LYMPHOCYTES % (AUTO) 13.7 % (13-45); MEAN CORPUSCULAR HEMOGLOBIN 29.7 pg (27.0-33.4); MEAN CORPUSCULAR HGB CONC 34.6 g/dL (32.0-36.0); MEAN CORPUSCULAR VOLUME 86 fl (80-97); MONOCYTES % (AUTO) 9.2 % (3-13); PLATELET COUNT 138 10^3/uL (150-450); RED BLOOD COUNT 3.12 10^6/uL (4.35-5.55); RED CELL DISTRIBUTION WIDTH 14.6 % (11.5-14.0); SEGMENTED NEUTROPHILS % (AUTO) 76.8 % (42-78); TOTAL CELLS COUNTED % (AUTO) 100 %; WHITE BLOOD COUNT 17.7 10^3/uL (4.0-10.5)
[2018-07-30 22:09] LABS: BLOOD UREA NITROGEN 45 mg/dL (7-20); CALCIUM 9.1 mg/dL (8.4-10.2); CARBON DIOXIDE 19 mmol/L (22-30); CHLORIDE 116 mmol/L (98-107); GLUCOSE 90 mg/dL (75-110); POTASSIUM 5.2 mmol/L (3.6-5.0)
[2018-07-30 22:21] LABS: ANION GAP 4 (5-19)
[2018-07-31 05:27] LABS: ABSOLUTE LYMPHOCYTES (AUTO) 2.1 10^3/uL (0.5-4.7); ABSOLUTE MONOCYTES (AUTO) 1.5 10^3/uL (0.1-1.4); ABSOLUTE NEUT (AUTO) 13.5 10^3/uL (1.7-8.2); BASOPHILS % (AUTO) 0.1 % (0-2); EOSINOPHILS % (AUTO) 0.1 % (0-6); HEMATOCRIT 27.7 % (37.9-51.0); HEMOGLOBIN 9.5 g/dL (13.5-17.0); LYMPHOCYTES % (AUTO) 12.5 % (13-45); MEAN CORPUSCULAR HEMOGLOBIN 29.6 pg (27.0-33.4); MEAN CORPUSCULAR HGB CONC 34.4 g/dL (32.0-36.0); MEAN CORPUSCULAR VOLUME 86 fl (80-97); MONOCYTES % (AUTO) 8.6 % (3-13); PLATELET COUNT 147 10^3/uL (150-450); RED BLOOD COUNT 3.21 10^6/uL (4.35-5.55); RED CELL DISTRIBUTION WIDTH 14.7 % (11.5-14.0); SEGMENTED NEUTROPHILS % (AUTO) 78.7 % (42-78); TOTAL CELLS COUNTED % (AUTO) 100 %; WHITE BLOOD COUNT 17.2 10^3/uL (4.0-10.5)
[2018-07-31 05:55] LABS: ANION GAP 6 (5-19); BLOOD UREA NITROGEN 50 mg/dL (7-20); CALCIUM 9.7 mg/dL (8.4-10.2); CARBON DIOXIDE 17 mmol/L (22-30); CHLORIDE 118 mmol/L (98-107); GLUCOSE 82 mg/dL (75-110); POTASSIUM 5.1 mmol/L (3.6-5.0)
[2018-07-31] MEDS ORDERED: GLUCAGON,HUMAN RECOMB 1 MG INJ IM PRN (09:24)
[2018-07-31] MEDS ORDERED: DEXTROSE 40% GEL 15 GM TUBE PO PRN ×2 (09:24)
[2018-07-31] MEDS ORDERED: DEXTROSE 50%-WATER 25 GM/50 ML DISP.SYRIN IV PRN ×2 (09:24)
--- NOTE | 2018-07-31 09:33 | PDOC PROGRESS REPORT ---
Subjective Progress Note for:: 07/31/18 Subjective:: 73 year old male history of diabetes mellitus, hypertension, NSAID use, presented to the ED with c/o SOB, dizzines, near syncope. He also reported black stools. Evaluation significant for a drop in his hemoglobin from when he was here yesterday at which time he had complained of shortness of breath and weakness and was ruled out for NM and sent home. Today he returned to the ED for near syncope. Workup significant for a drop in hemoglobin from 9.0 down to 7.2 and then 6.6. Of note is that baseline hemoglobin from 04/09/15 was 12.4. Patient was also found to be hypotensive in the systolic of 90s as well as he was orthostatic. Again, he does have a history of hypertension. He denies abdominal pain. States his symptoms have been going on for about a week. He was taking NSAIDs for arthritis for the past year, but he stopped it about a week ago when someone told him it may cause ulcer. He has been taking Tylenol since then. He was started on packed red blood cells transfusion, surgeon called for EGD, and patient referred to the hospitalist service for admission. [id number]-old male with history of diabetes mellitus hypertension NSAID use admitted with near syncope dizziness and shortness of breath. He reported black-colored stools. Evaluation in the emergency room indicate significant drop in hemoglobin. Status post EGD found to have a bleeding gastric ulcer. Ligation of the arterial bleed was done. Patient still having the black-colored stools much communications program manager in color and consistency. Patient is expressing desire to eat start him on full liquid diet today. Hemoglobin came up to 9.5 today. Status post multiple blood transfusions during the hospital stay. Reason For Visit: GI BLEED,SEVERE ANEMIA,ORTHOSTATIC HYPOTENSION Physical Exam Vital Signs: Temp Pulse Resp BP Pulse Ox 98.3 F 96 17 114/75 100 07/31/18 08:00 07/31/18 08:00 07/31/18 08:00 07/31/18 08:00 07/31/18 08:00 Intake & Output 07/30/18 07/31/18 08/01/18 06:59 06:59 06:59 Intake Total 1100 Output Total 1750 Balance -650 Weight 68.2 kg General appearance: PRESENT: no acute distress, other - Portable chair communicating well. Head exam: PRESENT: atraumatic Eye exam: PRESENT: PERRLA Mouth exam: PRESENT: moist, tongue midline Neck exam: ABSENT: carotid bruit, JVD, lymphadenopathy, thyromegaly Respiratory exam: PRESENT: clear to auscultation nayeli. ABSENT: rales, rhonchi, wheezes Cardiovascular exam: PRESENT: RRR. ABSENT: diastolic murmur, rubs, systolic murmur GI/Abdominal exam: PRESENT: normal bowel sounds, soft. ABSENT: distended, guarding, mass, organolmegaly, rebound, tenderness Rectal exam: PRESENT: deferred Extremities exam: PRESENT: full ROM. ABSENT: calf tenderness, clubbing, pedal edema Neurological exam: PRESENT: alert, awake, oriented to person, oriented to place, oriented to time, oriented to situation, CN II-XII grossly intact. ABSENT: motor sensory deficit Psychiatric exam: PRESENT: appropriate affect, normal mood. ABSENT: homicidal ideation, suicidal ideation Results Laboratory Results: 07/31/18 04:07 07/31/18 04:07 07/30/18 07/30/18 07/30/18 12:55 13:20 13:20 WBC 15.3 H RBC 2.54 L Hgb 7.2 L Hct 21.9 L MCV 86 MCH 28.3 MCHC 32.8 RDW 14.0 Plt Count 215 Seg Neutrophils % 86.3 H Lymphocytes % 8.5 L Monocytes % 5.0 Eosinophils % 0.1 Basophils % 0.1 Absolute Neutrophils 13.2 H Absolute Lymphocytes 1.3 Absolute Monocytes 0.8 Absolute Eosinophils 0.0 Absolute Basophils 0.0 Sodium 137.6 Potassium 5.0 Chloride 112 H Carbon Dioxide 21 L D Anion Gap 5 BUN 39 H Creatinine 1.01 Est GFR ( Amer) > 60 Est GFR (Non-Af Amer) > 60 Glucose 119 H Calcium 9.1 Total Bilirubin < 0.1 L AST 21 ALT 24 Alkaline Phosphatase 54 Total Protein 4.9 L Albumin 2.5 L Urine Color Urine Appearance Urine pH Ur Specific [place] Urine Protein Urine Glucose (UA) Urine Ketones Urine Blood Urine Nitrite Ur Leukocyte Esterase Urine WBC (Auto) Urine RBC (Auto) Blood Type O POSITIVE Antibody Screen NEGATIVE 07/30/18 07/30/18 07/30/18 14:00 17:00 21:18 WBC 12.4 H 17.7 H RBC 2.27 L 3.12 L Hgb 6.6 L 9.3 L D Hct 20.2 L 26.8 L MCV 89 86 MCH 29.2 29.7 MCHC 32.9 34.6 RDW 14.0 14.6 H Plt Count 158 138 L Seg Neutrophils % 80.0 H 76.8 Lymphocytes % 11.6 L 13.7 Monocytes % 8.2 9.2 Eosinophils % 0.0 0.1 Basophils % 0.2 0.2 Absolute Neutrophils 9.9 H 13.6 H Absolute Lymphocytes 1.4 2.4 Absolute Monocytes 1.0 1.6 H Absolute Eosinophils 0.0 0.0 Absolute Basophils 0.0 0.0 Sodium Potassium Chloride Carbon Dioxide Anion Gap BUN Creatinine Est GFR ( Amer) Est GFR (Non-Af Amer) Glucose Calcium Total Bilirubin AST ALT Alkaline Phosphatase Total Protein Albumin Urine Color YELLOW Urine Appearance CLEAR Urine pH 7.0 Ur Specific [place] 1.015 Urine Protein NEGATIVE Urine Glucose (UA) NEGATIVE Urine Ketones NEGATIVE Urine Blood NEGATIVE Urine Nitrite NEGATIVE Ur Leukocyte Esterase NEGATIVE Urine WBC (Auto) 0 Urine RBC (Auto) 2 Blood Type Antibody Screen 07/30/18 07/31/18 07/31/18 21:18 04:07 04:07 WBC 17.2 H RBC 3.21 L Hgb 9.5 L Hct 27.7 L MCV 86 MCH 29.6 MCHC 34.4 RDW 14.7 H Plt Count 147 L Seg Neutrophils % 78.7 H Lymphocytes % 12.5 L Monocytes % 8.6 Eosinophils % 0.1 Basophils % 0.1 Absolute Neutrophils 13.5 H Absolute Lymphocytes 2.1 Absolute Monocytes 1.5 H Absolute Eosinophils 0.0 Absolute Basophils 0.0 Sodium 139.0 141.0 Potassium 5.2 H 5.1 H Chloride 116 H 118 H Carbon Dioxide 19 L 17 L Anion Gap 4 L 6 BUN 45 H 50 H Creatinine 0.99 0.96 Est GFR ( Amer) > 60 > 60 Est GFR (Non-Af Amer) > 60 > 60 Glucose 90 82 Calcium 9.1 9.7 Total Bilirubin AST ALT Alkaline Phosphatase Total Protein Albumin Urine Color Urine Appearance Urine pH Ur Specific [place] Urine Protein Urine Glucose (UA) Urine Ketones Urine Blood Urine Nitrite Ur Leukocyte Esterase Urine WBC (Auto) Urine RBC (Auto) Blood Type Antibody Screen 07/30/18 13:20 Troponin I < 0.012 Impressions: Chest X-Ray 07/30/18 11:36 IMPRESSION: NO ACUTE RADIOGRAPHIC FINDING IN THE CHEST. Head CT 07/30/18 11:36 IMPRESSION: NORMAL BRAIN CT WITHOUT CONTRAST. EVIDENCE OF ACUTE STROKE: NO. Assessment and Plan - Diagnosis (1) Upper GI bleed Is this a current diagnosis for this admission?: Yes Plan: Suspect upper GI bleed given history of NSAIDs use and black stools. Patient to have EGD emergently done. Will treat with IV Protonix, IV fluid. He has received 2 units packed red blood cells. We will follow serial H&H on transfuse further as needed. Advised no more NSAIDs use. 07/31/2018-patient came in with dizziness shortness of breath and black-colored stool status post EGD found to have bleeding gastric ulcer status post ligation. (2) Diabetes mellitus type II, controlled Qualifiers: Diabetes mellitus long wall mining machine helper insulin use: without nursing home use Diabetes mellitus complication status: without complication Qualified Code(s): E11.9 - Type 2 diabetes mellitus without complications Is this a current diagnosis for this admission?: Yes Plan: Will hold metformin, will order echogenic and cover with sliding scale insulin. 07/31/2018-patient has history of type 2 diabetes mellitus. To hold metformin here to son to start him on insulin sliding scale. Check for hemoglobin A1c tomorrow. Start him on a full liquid diet today. (3) Hyperlipidemia Qualifiers: Hyperlipidemia type: unspecified Qualified Code(s): E78.5 - Hyperlipidemia, unspecified Is this a current diagnosis for this admission?: Yes Plan: Will start atorvastatin when stable and able to tolerate p.o.'s. 07/31/2018-patient has history of hyperlipidemia he was restarted on a atorvastatin today. (4) Hypokalemia Is this a current diagnosis for this admission?: Yes Plan: 07/31/2018-patient min with hypokalemia but the potassium level today is 5.1 today. Plan is to discontinue potassium supplementation from today. - Time Time Spent with patient: 15-24 minutes Medications reviewed and adjusted accordingly: Yes Anticipated discharge: Home
[2018-07-31] MEDS: LISINOPRIL 10 MG TABLET PO SCH (09:49)
[2018-07-31] MEDS: HYDROCHLOROTHIAZIDE 12.5 MG TABLET PO SCH (09:49)
[2018-07-31] MEDS: CITALOPRAM HYDROBROMIDE 20 MG TABLET PO SCH (09:50)
[2018-07-31] MEDS ORDERED: (PENDING PHARMACY ID) (Citalopram Hydrobromide [Citalopram Hbr] 20 MG) PO SCH (10:00)
[2018-07-31] MEDS: AMLODIPINE BESYLATE 2.5 MG TABLET PO SCH (10:07)
[2018-07-31] MEDS: ACETAMINOPHEN 325 MG TABLET PO PRN ×3 (10:26→23:28)
--- NOTE | 2018-07-31 11:17 | PDOC PROGRESS REPORT ---
Subjective Progress Note for:: 07/31/18 Subjective:: No complaints. Had bowel movement which was not nearly as dark or bloody as prior. Reason For Visit: GI BLEED,SEVERE ANEMIA,ORTHOSTATIC HYPOTENSION Physical Exam Vital Signs: Temp Pulse Resp BP Pulse Ox 98.3 F 106 H 12 134/88 H 100 07/31/18 08:00 07/31/18 10:00 07/31/18 10:22 07/31/18 10:22 07/31/18 10:22 Intake & Output 07/30/18 07/31/18 08/01/18 06:59 06:59 06:59 Intake Total 1100 Output Total 1750 Balance -650 Weight 68.2 kg General appearance: PRESENT: no acute distress, cooperative Respiratory exam: PRESENT: clear to auscultation nayeli Cardiovascular exam: PRESENT: RRR GI/Abdominal exam: PRESENT: other - Soft, nondistended, nontender to palpation. Results Laboratory Results: 07/31/18 04:07 07/31/18 04:07 07/30/18 07/30/18 07/30/18 12:55 13:20 13:20 WBC 15.3 H RBC 2.54 L Hgb 7.2 L Hct 21.9 L MCV 86 MCH 28.3 MCHC 32.8 RDW 14.0 Plt Count 215 Seg Neutrophils % 86.3 H Lymphocytes % 8.5 L Monocytes % 5.0 Eosinophils % 0.1 Basophils % 0.1 Absolute Neutrophils 13.2 H Absolute Lymphocytes 1.3 Absolute Monocytes 0.8 Absolute Eosinophils 0.0 Absolute Basophils 0.0 Sodium 137.6 Potassium 5.0 Chloride 112 H Carbon Dioxide 21 L D Anion Gap 5 BUN 39 H Creatinine 1.01 Est GFR ( Amer) > 60 Est GFR (Non-Af Amer) > 60 Glucose 119 H Calcium 9.1 Total Bilirubin < 0.1 L AST 21 ALT 24 Alkaline Phosphatase 54 Total Protein 4.9 L Albumin 2.5 L Urine Color Urine Appearance Urine pH Ur Specific [place] Urine Protein Urine Glucose (UA) Urine Ketones Urine Blood Urine Nitrite Ur Leukocyte Esterase Urine WBC (Auto) Urine RBC (Auto) Blood Type O POSITIVE Antibody Screen NEGATIVE 07/30/18 07/30/18 07/30/18 14:00 17:00 21:18 WBC 12.4 H 17.7 H RBC 2.27 L 3.12 L Hgb 6.6 L 9.3 L D Hct 20.2 L 26.8 L MCV 89 86 MCH 29.2 29.7 MCHC 32.9 34.6 RDW 14.0 14.6 H Plt Count 158 138 L Seg Neutrophils % 80.0 H 76.8 Lymphocytes % 11.6 L 13.7 Monocytes % 8.2 9.2 Eosinophils % 0.0 0.1 Basophils % 0.2 0.2 Absolute Neutrophils 9.9 H 13.6 H Absolute Lymphocytes 1.4 2.4 Absolute Monocytes 1.0 1.6 H Absolute Eosinophils 0.0 0.0 Absolute Basophils 0.0 0.0 Sodium Potassium Chloride Carbon Dioxide Anion Gap BUN Creatinine Est GFR ( Amer) Est GFR (Non-Af Amer) Glucose Calcium Total Bilirubin AST ALT Alkaline Phosphatase Total Protein Albumin Urine Color YELLOW Urine Appearance CLEAR Urine pH 7.0 Ur Specific [place] 1.015 Urine Protein NEGATIVE Urine Glucose (UA) NEGATIVE Urine Ketones NEGATIVE Urine Blood NEGATIVE Urine Nitrite NEGATIVE Ur Leukocyte Esterase NEGATIVE Urine WBC (Auto) 0 Urine RBC (Auto) 2 Blood Type Antibody Screen 07/30/18 07/31/18 07/31/18 21:18 04:07 04:07 WBC 17.2 H RBC 3.21 L Hgb 9.5 L Hct 27.7 L MCV 86 MCH 29.6 MCHC 34.4 RDW 14.7 H Plt Count 147 L Seg Neutrophils % 78.7 H Lymphocytes % 12.5 L Monocytes % 8.6 Eosinophils % 0.1 Basophils % 0.1 Absolute Neutrophils 13.5 H Absolute Lymphocytes 2.1 Absolute Monocytes 1.5 H Absolute Eosinophils 0.0 Absolute Basophils 0.0 Sodium 139.0 141.0 Potassium 5.2 H 5.1 H Chloride 116 H 118 H Carbon Dioxide 19 L 17 L Anion Gap 4 L 6 BUN 45 H 50 H Creatinine 0.99 0.96 Est GFR ( Amer) > 60 > 60 Est GFR (Non-Af Amer) > 60 > 60 Glucose 90 82 Calcium 9.1 9.7 Total Bilirubin AST ALT Alkaline Phosphatase Total Protein Albumin Urine Color Urine Appearance Urine pH Ur Specific [place] Urine Protein Urine Glucose (UA) Urine Ketones Urine Blood Urine Nitrite Ur Leukocyte Esterase Urine WBC (Auto) Urine RBC (Auto) Blood Type Antibody Screen 07/30/18 13:20 Troponin I < 0.012 Impressions: Chest X-Ray 07/30/18 11:36 IMPRESSION: NO ACUTE RADIOGRAPHIC FINDING IN THE CHEST. Head CT 07/30/18 11:36 IMPRESSION: NORMAL BRAIN CT WITHOUT CONTRAST. EVIDENCE OF ACUTE STROKE: NO. Assessment & Plan - Diagnosis (1) Upper GI bleed Is this a current diagnosis for this admission?: Yes Plan: Gastric ulcer bleed status post endoscopic intervention. No evidence of continued bleed. Recommend empirically treating for H. pylori and keeping the patient on proton pump inhibitor indefinitely. If patient continues to do well may advance his diet to solids tomorrow. Patient will need a follow-up EGD as an outpatient. Patient may follow-up at [facility] or have this procedure done at the [place]. Patient understands the importance of this procedure and will [facility] or will follow-up with us. General surgery service signing off. Please call us for any issues.
[2018-07-31] MEDS: INSULIN REG, HUMAN 100 UNIT/ML 3 ML VIAL (PYX) SUBCUT SCH ×3 (11:57→22:14)
[2018-07-31] MEDS: PANTOPRAZOLE SODIUM 40 MG TABLET.DR PO SCH (17:10)
[2018-07-31] MEDS: ATORVASTATIN CALCIUM 20 MG TABLET PO SCH (22:16)
[2018-08-01] MEDS: PANTOPRAZOLE SODIUM 40 MG TABLET.DR PO SCH (06:39)
[2018-08-01] MEDS: ACETAMINOPHEN 325 MG TABLET PO PRN ×3 (06:39→22:25)
[2018-08-01] MEDS: INSULIN REG, HUMAN 100 UNIT/ML 3 ML VIAL (PYX) SUBCUT SCH ×4 (07:24→22:20)
[2018-08-01 07:33] LABS: ABSOLUTE EOSINOPHILS # (AUTO) 0.1 10^3/uL (0.0-0.6); ABSOLUTE LYMPHOCYTES (AUTO) 1.5 10^3/uL (0.5-4.7); ABSOLUTE MONOCYTES (AUTO) 0.8 10^3/uL (0.1-1.4); ABSOLUTE NEUT (AUTO) 5.5 10^3/uL (1.7-8.2); BASOPHILS % (AUTO) 0.3 % (0-2); EOSINOPHILS % (AUTO) 1.1 % (0-6); HEMATOCRIT 23.5 % (37.9-51.0); HEMOGLOBIN 8.2 g/dL (13.5-17.0); MEAN CORPUSCULAR HEMOGLOBIN 30.2 pg (27.0-33.4); MEAN CORPUSCULAR HGB CONC 34.9 g/dL (32.0-36.0); MEAN CORPUSCULAR VOLUME 87 fl (80-97); MONOCYTES % (AUTO) 10.2 % (3-13); PLATELET COUNT 167 10^3/uL (150-450); RED BLOOD COUNT 2.72 10^6/uL (4.35-5.55); SEGMENTED NEUTROPHILS % (AUTO) 69.4 % (42-78); TOTAL CELLS COUNTED % (AUTO) 100 %
[2018-08-01 07:48] LABS: ALANINE AMINOTRANSFERASE 28 U/L (21-72); ALBUMIN 2.9 g/dL (3.5-5.0); ALKALINE PHOSPHATASE 53 U/L (38-126); ASPARTATE AMINO TRANSFERASE 30 U/L (17-59); BILIRUBIN,DIRECT 0.2 mg/dL (0.0-0.4); BILIRUBIN,TOTAL 0.3 mg/dL (0.2-1.3); BLOOD UREA NITROGEN 31 mg/dL (7-20); CALCIUM 9.5 mg/dL (8.4-10.2); GLUCOSE 90 mg/dL (75-110); POTASSIUM 4.5 mmol/L (3.6-5.0); TOTAL PROTEIN 5.4 g/dL (6.3-8.2)
[2018-08-01 07:53] LABS: CARBON DIOXIDE 19 mmol/L (22-30); CHLORIDE 113 mmol/L (98-107)
[2018-08-01 07:56] LABS: ANION GAP 4 (5-19)
[2018-08-01] MEDS: CITALOPRAM HYDROBROMIDE 20 MG TABLET PO SCH (10:35)
[2018-08-01] MEDS: HYDROCHLOROTHIAZIDE 12.5 MG TABLET PO SCH (10:35)
[2018-08-01] MEDS: LISINOPRIL 10 MG TABLET PO SCH (10:35)
[2018-08-01] MEDS: AMLODIPINE BESYLATE 2.5 MG TABLET PO SCH (10:36)
[2018-08-01] MEDS: PANTOPRAZOLE SODIUM 40 MG VIAL IV SCH ×2 (10:36→22:25)
[2018-08-01 13:42] LABS: HEMATOCRIT 24.2 % (37.9-51.0); HEMOGLOBIN 8.3 g/dL (13.5-17.0); MEAN CORPUSCULAR HEMOGLOBIN 29.8 pg (27.0-33.4); MEAN CORPUSCULAR HGB CONC 34.2 g/dL (32.0-36.0); MEAN CORPUSCULAR VOLUME 87 fl (80-97); PLATELET COUNT 190 10^3/uL (150-450); RED BLOOD COUNT 2.79 10^6/uL (4.35-5.55); RED CELL DISTRIBUTION WIDTH 14.8 % (11.5-14.0); WHITE BLOOD COUNT 8.9 10^3/uL (4.0-10.5)
--- NOTE | 2018-08-01 19:40 | PDOC PROGRESS REPORT ---
Subjective Progress Note for:: 08/01/18 Subjective:: This is a 73 year old male history of diabetes mellitus, hypertension, NSAID use, presented to the ED with c/o SOB, dizzines, near syncope and black stools. He was found to be anemic and was admitted for upper GI bleed. He underwent EGD on 07/31 and had clipping of an actively bleeding gastric ulcer. He was downgraded from ICU last night. He had a total of 4 u of PRBCs. Patient had 2 episodes of dark stools overnight. He says this is not as dark or black as before he came in. Denies abdominal pain. Hb slightly trended down today. Reason For Visit: GI BLEED,SEVERE ANEMIA,ORTHOSTATIC HYPOTENSION Physical Exam Vital Signs: Temp Pulse Resp BP Pulse Ox 98.5 F 87 18 113/61 100 08/01/18 16:28 08/01/18 16:28 08/01/18 16:28 08/01/18 16:28 08/01/18 16:28 Intake & Output 07/31/18 08/01/18 08/02/18 06:59 06:59 06:59 Intake Total 8567 717 2064 Output Total 1750 100 Balance -650 0 2051 Weight 150 lb 5.684 oz 113 lb 1.554 oz General appearance: PRESENT: no acute distress, well-developed, well-nourished Head exam: PRESENT: atraumatic, normocephalic Eye exam: PRESENT: conjunctiva pink, EOMI, PERRLA. ABSENT: scleral icterus Ear exam: PRESENT: normal external ear exam Neck exam: ABSENT: carotid bruit, JVD, lymphadenopathy, thyromegaly Respiratory exam: PRESENT: clear to auscultation nayeli. ABSENT: rales, rhonchi, wheezes Cardiovascular exam: PRESENT: RRR. ABSENT: diastolic murmur, rubs, systolic murmur Pulses: PRESENT: normal dorsalis pedis pul GI/Abdominal exam: PRESENT: normal bowel sounds, soft. ABSENT: distended, guarding, mass, organolmegaly, rebound, tenderness Rectal exam: PRESENT: deferred Neurological exam: PRESENT: alert, awake, oriented to person, oriented to place, oriented to time, oriented to situation, CN II-XII grossly intact. ABSENT: motor sensory deficit Results Laboratory Results: 08/01/18 13:14 08/01/18 06:37 08/01/18 08/01/18 08/01/18 06:37 06:37 13:14 WBC 8.0 8.9 RBC 2.72 L 2.79 L Hgb 8.2 L 8.3 L Hct 23.5 L 24.2 L MCV 87 87 MCH 30.2 29.8 MCHC 34.9 34.2 RDW 15.0 H 14.8 H Plt Count 167 190 Seg Neutrophils % 69.4 Lymphocytes % 19.0 Monocytes % 10.2 Eosinophils % 1.1 Basophils % 0.3 Absolute Neutrophils 5.5 Absolute Lymphocytes 1.5 Absolute Monocytes 0.8 Absolute Eosinophils 0.1 Absolute Basophils 0.0 Sodium 136.0 L Potassium 4.5 Chloride 113 H Carbon Dioxide 19 L Anion Gap 4 L BUN 31 H Creatinine 0.91 Est GFR ( Amer) > 60 Est GFR (Non-Af Amer) > 60 Glucose 90 Calcium 9.5 Magnesium 2.1 Total Bilirubin 0.3 AST 30 ALT 28 Alkaline Phosphatase 53 Total Protein 5.4 L Albumin 2.9 L 07/30/18 13:20 Troponin I < 0.012 Impressions: Chest X-Ray 07/30/18 11:36 IMPRESSION: NO ACUTE RADIOGRAPHIC FINDING IN THE CHEST. Head CT 07/30/18 11:36 IMPRESSION: NORMAL BRAIN CT WITHOUT CONTRAST. EVIDENCE OF ACUTE STROKE: NO. Assessment and Plan - Diagnosis (1) Upper GI bleed Is this a current diagnosis for this admission?: Yes Plan: He underwent EGD on 07/31 and had clipping of an actively bleeding gastric ulcer. He was downgraded from ICU last night. He had a total of 4 u of PRBCs. Patient had 2 episodes of dark stools overnight. He says this is not as dark or black as before he came in. Continue to monitor Hb in the next 24 hrs. Continue IV Protonix. (2) Acute blood loss anemia Is this a current diagnosis for this admission?: Yes Plan: As per number 1. - Time Time Spent with patient: 15-24 minutes
[2018-08-01] MEDS: ATORVASTATIN CALCIUM 20 MG TABLET PO SCH (22:26)
[2018-08-02 07:04] LABS: ABSOLUTE EOSINOPHILS # (AUTO) 0.1 10^3/uL (0.0-0.6); ABSOLUTE LYMPHOCYTES (AUTO) 1.4 10^3/uL (0.5-4.7); ABSOLUTE MONOCYTES (AUTO) 0.9 10^3/uL (0.1-1.4); ABSOLUTE NEUT (AUTO) 5.4 10^3/uL (1.7-8.2); BASOPHILS % (AUTO) 0.2 % (0-2); EOSINOPHILS % (AUTO) 1.5 % (0-6); HEMATOCRIT 22.9 % (37.9-51.0); LYMPHOCYTES % (AUTO) 17.5 % (13-45); MEAN CORPUSCULAR HEMOGLOBIN 30.2 pg (27.0-33.4); MEAN CORPUSCULAR HGB CONC 34.8 g/dL (32.0-36.0); MEAN CORPUSCULAR VOLUME 87 fl (80-97); MONOCYTES % (AUTO) 11.2 % (3-13); PLATELET COUNT 202 10^3/uL (150-450); RED BLOOD COUNT 2.64 10^6/uL (4.35-5.55); RED CELL DISTRIBUTION WIDTH 14.8 % (11.5-14.0); SEGMENTED NEUTROPHILS % (AUTO) 69.6 % (42-78); TOTAL CELLS COUNTED % (AUTO) 100 %; WHITE BLOOD COUNT 7.7 10^3/uL (4.0-10.5)
[2018-08-02] MEDS: INSULIN REG, HUMAN 100 UNIT/ML 3 ML VIAL (PYX) SUBCUT SCH ×4 (07:36→22:12)
[2018-08-02] MEDS: AMLODIPINE BESYLATE 2.5 MG TABLET PO SCH (10:34)
[2018-08-02] MEDS: LISINOPRIL 10 MG TABLET PO SCH (10:34)
[2018-08-02] MEDS: CITALOPRAM HYDROBROMIDE 20 MG TABLET PO SCH (10:41)
[2018-08-02] MEDS: ACETAMINOPHEN 325 MG TABLET PO PRN ×2 (10:41→22:44)
[2018-08-02] MEDS: HYDROCHLOROTHIAZIDE 12.5 MG TABLET PO SCH (10:42)
[2018-08-02] MEDS: PANTOPRAZOLE SODIUM 40 MG VIAL IV SCH ×2 (10:42→22:44)
[2018-08-02] MEDS ORDERED: NORMAL SALINE 500 ML IV ONE (11:45)
[2018-08-02 13:23] LABS: HEMATOCRIT 22.9 % (37.9-51.0); MEAN CORPUSCULAR HEMOGLOBIN 29.8 pg (27.0-33.4); MEAN CORPUSCULAR HGB CONC 34.2 g/dL (32.0-36.0); MEAN CORPUSCULAR VOLUME 87 fl (80-97); PLATELET COUNT 218 10^3/uL (150-450); RED BLOOD COUNT 2.63 10^6/uL (4.35-5.55); RED CELL DISTRIBUTION WIDTH 14.4 % (11.5-14.0); WHITE BLOOD COUNT 8.9 10^3/uL (4.0-10.5)
[2018-08-02 13:31] LABS: HEMOGLOBIN 7.8 g/dL (13.5-17.0)
--- NOTE | 2018-08-02 16:19 | PDOC PROGRESS REPORT ---
Subjective Progress Note for:: 08/02/18 Subjective:: This is a 73 year old male history of diabetes mellitus, hypertension, NSAID use, presented to the ED with c/o SOB, dizzines, near syncope and black stools. He was found to be anemic and was admitted for upper GI bleed. He underwent EGD on 07/31 and had clipping of an actively bleeding gastric ulcer. He was downgraded from ICU last night. He had a total of 4 u of PRBCs. 08/01: Patient had 2 episodes of dark stools overnight. He says this is not as dark or black as before he came in. Denies abdominal pain. Hb slightly trended down today. 08/02: No acute event overnight. Repeat Hb trended down to 7.8 today. His last BM was last night and he says it was less dark. No BM yet today. Reason For Visit: GI BLEED,SEVERE ANEMIA,ORTHOSTATIC HYPOTENSION Physical Exam Vital Signs: Temp Pulse Resp BP Pulse Ox 98.0 F 94 18 112/52 L 100 08/02/18 07:56 08/02/18 14:00 08/02/18 07:56 08/02/18 07:56 08/02/18 07:56 Intake & Output 08/01/18 08/02/18 08/03/18 06:59 06:59 06:59 Intake Total 100 2532 Output Total 100 Balance 0 2532 Weight 113 lb 1.554 oz 113 lb 1.554 oz General appearance: PRESENT: no acute distress, well-developed, well-nourished Head exam: PRESENT: atraumatic, normocephalic Eye exam: PRESENT: conjunctiva pink, EOMI, PERRLA. ABSENT: scleral icterus Ear exam: PRESENT: normal external ear exam Mouth exam: PRESENT: moist, tongue midline Neck exam: ABSENT: carotid bruit, JVD, lymphadenopathy, thyromegaly Respiratory exam: PRESENT: clear to auscultation nayeli. ABSENT: rales, rhonchi, wheezes Cardiovascular exam: PRESENT: RRR. ABSENT: diastolic murmur, rubs, systolic murmur Pulses: PRESENT: normal dorsalis pedis pul Vascular exam: PRESENT: normal capillary refill GI/Abdominal exam: PRESENT: normal bowel sounds, soft. ABSENT: distended, guarding, mass, organolmegaly, rebound, tenderness Rectal exam: PRESENT: deferred Neurological exam: PRESENT: alert, awake, oriented to person, oriented to place, oriented to time, oriented to situation, CN II-XII grossly intact. ABSENT: motor sensory deficit Results Laboratory Results: 08/02/18 12:10 08/01/18 06:37 08/02/18 08/02/18 06:49 12:10 WBC 7.7 8.9 RBC 2.64 L 2.63 L Hgb 8.0 L 7.8 L Hct 22.9 L 22.9 L MCV 87 87 MCH 30.2 29.8 MCHC 34.8 34.2 RDW 14.8 H 14.4 H Plt Count 202 218 Seg Neutrophils % 69.6 Lymphocytes % 17.5 Monocytes % 11.2 Eosinophils % 1.5 Basophils % 0.2 Absolute Neutrophils 5.4 Absolute Lymphocytes 1.4 Absolute Monocytes 0.9 Absolute Eosinophils 0.1 Absolute Basophils 0.0 07/30/18 13:20 Troponin I < 0.012 Impressions: Chest X-Ray 07/30/18 11:36 IMPRESSION: NO ACUTE RADIOGRAPHIC FINDING IN THE CHEST. Head CT 07/30/18 11:36 IMPRESSION: NORMAL BRAIN CT WITHOUT CONTRAST. EVIDENCE OF ACUTE STROKE: NO. Assessment and Plan - Diagnosis (1) Upper GI bleed Is this a current diagnosis for this admission?: Yes Plan: He underwent EGD on 07/31 and had clipping of an actively bleeding gastric ulcer. He was downgraded from ICU last night. He had a total of 4 u of PRBCs. 08/01: Patient had 2 episodes of dark stools overnight. He says this is not as dark or black as before he came in. Continue to monitor Hb in the next 24 hrs. Continue IV Protonix. 08/02: Repeat Hb trended down to 7.8 today. His last BM was last night and he says it was less dark. Will recheck Hb and check next BM for recurrence of melena. (2) Acute blood loss anemia Is this a current diagnosis for this admission?: Yes Plan: As per number 1. - Time Time Spent with patient: 15-24 minutes
[2018-08-02] MEDS ORDERED: DEXTROSE 50%-WATER 25 GM/50 ML DISP.SYRIN IV PRN ×2 (18:09)
[2018-08-02] MEDS ORDERED: GLUCAGON,HUMAN RECOMB 1 MG INJ SUBCUT PRN (18:09)
[2018-08-02] MEDS ORDERED: DEXTROSE 40% GEL 15 GM TUBE PO PRN ×2 (18:09)
--- NOTE | 2018-08-02 18:09 | PDOC PROGRESS REPORT ---
Subjective Progress Note for:: 08/02/18 Subjective:: Called to reevaluate patient with slightly decreased hemoglobin. Patient notes that he did not have any recurrent episodes of melena although his stool was slightly dark. With no complaints. Reason For Visit: GI BLEED,SEVERE ANEMIA,ORTHOSTATIC HYPOTENSION Physical Exam Vital Signs: Temp Pulse Resp BP Pulse Ox 98.0 F 94 18 112/52 L 100 08/02/18 07:56 08/02/18 14:00 08/02/18 07:56 08/02/18 07:56 08/02/18 07:56 Intake & Output 08/01/18 08/02/18 08/03/18 06:59 06:59 06:59 Intake Total 100 2532 Output Total 100 Balance 0 2532 Weight 51.3 kg 51.3 kg General appearance: PRESENT: no acute distress, cooperative Cardiovascular exam: PRESENT: RRR GI/Abdominal exam: PRESENT: other - Soft, nondistended, nontender to palpation. Results Laboratory Results: 08/02/18 12:10 08/01/18 06:37 08/02/18 08/02/18 06:49 12:10 WBC 7.7 8.9 RBC 2.64 L 2.63 L Hgb 8.0 L 7.8 L Hct 22.9 L 22.9 L MCV 87 87 MCH 30.2 29.8 MCHC 34.8 34.2 RDW 14.8 H 14.4 H Plt Count 202 218 Seg Neutrophils % 69.6 Lymphocytes % 17.5 Monocytes % 11.2 Eosinophils % 1.5 Basophils % 0.2 Absolute Neutrophils 5.4 Absolute Lymphocytes 1.4 Absolute Monocytes 0.9 Absolute Eosinophils 0.1 Absolute Basophils 0.0 07/30/18 13:20 Troponin I < 0.012 Impressions: Chest X-Ray 07/30/18 11:36 IMPRESSION: NO ACUTE RADIOGRAPHIC FINDING IN THE CHEST. Head CT 07/30/18 11:36 IMPRESSION: NORMAL BRAIN CT WITHOUT CONTRAST. EVIDENCE OF ACUTE STROKE: NO. Assessment & Plan - Diagnosis (1) Upper GI bleed Is this a current diagnosis for this admission?: Yes Plan: I do not think he is actively bleeding. The hemoglobin has come down just slightly. We will repeat CBC in the morning. If his it is significantly decreased we will plan upper endoscopy. We will have him not eat breakfast until the CBC is back.
[2018-08-02 19:09] LABS: HEMATOCRIT 24.1 % (37.9-51.0); HEMOGLOBIN 8.2 g/dL (13.5-17.0); MEAN CORPUSCULAR HEMOGLOBIN 29.2 pg (27.0-33.4); MEAN CORPUSCULAR VOLUME 86 fl (80-97); PLATELET COUNT 248 10^3/uL (150-450); RED BLOOD COUNT 2.81 10^6/uL (4.35-5.55); RED CELL DISTRIBUTION WIDTH 14.8 % (11.5-14.0); WHITE BLOOD COUNT 10.4 10^3/uL (4.0-10.5)
[2018-08-02] MEDS: ATORVASTATIN CALCIUM 20 MG TABLET PO SCH (22:44)
[2018-08-03 06:42] LABS: HEMATOCRIT 24.4 % (37.9-51.0); HEMOGLOBIN 8.4 g/dL (13.5-17.0); MEAN CORPUSCULAR HGB CONC 34.3 g/dL (32.0-36.0); MEAN CORPUSCULAR VOLUME 87 fl (80-97); PLATELET COUNT 262 10^3/uL (150-450); RED BLOOD COUNT 2.79 10^6/uL (4.35-5.55); RED CELL DISTRIBUTION WIDTH 15.1 % (11.5-14.0); WHITE BLOOD COUNT 10.2 10^3/uL (4.0-10.5)
[2018-08-03] MEDS: INSULIN REG, HUMAN 100 UNIT/ML 3 ML VIAL (PYX) SUBCUT SCH ×2 (07:33→11:12)
[2018-08-03 09:06] VITALS: BP 101/60
[2018-08-03] MEDS: CITALOPRAM HYDROBROMIDE 20 MG TABLET PO SCH (09:47)
[2018-08-03] MEDS: PANTOPRAZOLE SODIUM 40 MG VIAL IV SCH (09:47)
[2018-08-03] MEDS: HYDROCHLOROTHIAZIDE 12.5 MG TABLET PO SCH (09:48)
[2018-08-03] MEDS: LISINOPRIL 10 MG TABLET PO SCH (09:51)
[2018-08-03] MEDS: AMLODIPINE BESYLATE 2.5 MG TABLET PO SCH (09:51)
--- NOTE | 2018-08-04 17:57 | PDOC DISCHARGE SUMMARY ---
General - Admit/Disc Date/PCP Admission Date/Primary Care Provider: 07/30/18 12:[facility] Discharge Date: 08/03/18 - Discharge Diagnosis (1) Upper GI bleed Is this a current diagnosis for this admission?: Yes (2) Acute blood loss anemia Is this a current diagnosis for this admission?: Yes - Additional Information Resuscitation Status: Full Code Discharge Diet: As Tolerated, Regular Discharge Activity: Activity As Tolerated Prescriptions: Ferrous Sulfate 325 mg PO DAILY #30 tablet. Pantoprazole Sodium [Protonix [address] Tablet] 40 mg PO QAM #60 tablet. Home Medications: Amlodipine Besylate [Norvasc 2.5 mg Tablet] 2.5 mg PO DAILY 07/30/18 Atorvastatin Calcium [Lipitor 20 mg Tablet] 20 mg PO DAILY 07/30/18 Citalopram Hydrobromide [Citalopram HBr] 20 mg PO DAILY 07/30/18 Hydrochlorothiazide [Hydrodiuril 12.5 mg Tablet] 12.5 mg PO DAILY 07/30/18 Lisinopril [Prinivil 10 mg Tablet] 10 mg PO DAILY 07/30/18 Metformin HCl [Glucophage 500 mg Tablet] 500 mg PO DAILY 07/30/18 Potassium Chloride [K-Tab ER] 20 meq PO DAILY 07/30/18 Ferrous Sulfate 325 mg PO DAILY #30 tablet. 08/03/18 Pantoprazole Sodium [Protonix [address] Tablet] 40 mg PO QAM #60 tablet. 08/03/18 History of Present Illness History of Present Illness: Admitting hospitalist's H&P: MEET BELL is a 73 year old male history of diabetes mellitus, hypertension, NSAID use, presented to the ED with c/o SOB, dizzines, near syncope. He also reported black stools. Evaluation significant for a drop in his hemoglobin from when he was here yesterday at which time he had complained of shortness of breath and weakness and was ruled out for PA and sent home. Today he returned to the ED for near syncope. Workup significant for a drop in hemoglobin from 9.0 down to 7.2 and then 6.6. Of note is that baseline hemoglobin from 04/09/15 was 12.4. Patient was also found to be hypotensive in the systolic of 90s as well as he was orthostatic. Again, he does have a history of hypertension. He denies abdominal pain. States his symptoms have been going on for about a week. He was taking NSAIDs for arthritis for the past year, but he stopped it about a week ago when someone told him it may cause ulcer. He has been taking Tylenol since then. He was started on packed red blood cells transfusion, surgeon called for EGD, and patient referred to the hospitalist service for admission. Hospital Course Hospital Course: This is a 73 year old male history of diabetes mellitus, hypertension, NSAID use, presented to the ED with c/o SOB, dizzines, near syncope and black stools. He was found to be anemic and was admitted for upper GI bleed. He underwent EGD on 07/31 and had clipping of an actively bleeding gastric ulcer. He had a total of 4 u of PRBCs. He was also continued on PPI. His hemoglobin stabilized and his stools did clear up. No recurrence of black tarry stool. He will be discharged on Protonix. Physical Exam Vital Signs: Temp Pulse Resp BP Pulse Ox 98.3 F 84 18 101/60 100 08/03/18 11:32 08/03/18 11:32 08/03/18 11:32 08/03/18 11:32 08/03/18 11:32 Intake & Output 08/03/18 08/04/18 08/05/18 06:59 06:59 06:59 Intake Total 750 Balance 750 Weight 111 lb 1.808 oz General appearance: PRESENT: no acute distress, well-developed, well-nourished Head exam: PRESENT: atraumatic, normocephalic Eye exam: PRESENT: conjunctiva pink, EOMI, PERRLA. ABSENT: scleral icterus Ear exam: PRESENT: normal external ear exam Mouth exam: PRESENT: moist, tongue midline Neck exam: ABSENT: carotid bruit, JVD, lymphadenopathy, thyromegaly Respiratory exam: PRESENT: clear to auscultation nayeli. ABSENT: rales, rhonchi, wheezes Cardiovascular exam: PRESENT: RRR. ABSENT: diastolic murmur, rubs, systolic murmur Pulses: PRESENT: normal dorsalis pedis pul GI/Abdominal exam: PRESENT: normal bowel sounds, soft. ABSENT: distended, guarding, mass, organolmegaly, rebound, tenderness Rectal exam: PRESENT: deferred Neurological exam: PRESENT: alert, awake, oriented to person, oriented to place, oriented to time, oriented to situation, CN II-XII grossly intact. ABSENT: motor sensory deficit Results Laboratory Results: 08/03/18 05:30 08/01/18 06:37 07/30/18 13:20 Troponin I < 0.012 Impressions: Chest X-Ray 07/30/18 11:36 IMPRESSION: NO ACUTE RADIOGRAPHIC FINDING IN THE CHEST. Head CT 07/30/18 11:36 IMPRESSION: NORMAL BRAIN CT WITHOUT CONTRAST. EVIDENCE OF ACUTE STROKE: NO. Qualifiers - * PATIENT BEING DISCHARGED WITH ANY OF THE FOLLOWING DIAGNOSIS: No
== END 2018-08-03 12:14 | disposition home or self-care (01) | DRG 378 ==
LOC: ER 11:07 → EH 12:51 → ICU 18:21 → 4S 07-31 15:45
PROVIDERS: ADMIT Internal Medicine; ATTEND Internal Medicine
PROC: 30233N1 Transfusion of Nonautologous Red Blood Cells into Peripheral Vein, Percutaneous Approach (ICD-10-PCS; 2018-07-30)
PROC: 0W3P8ZZ Control Bleeding in Gastrointestinal Tract, Via Natural or Artificial Opening Endoscopic (ICD-10-PCS; principal; 2018-07-30 14:00)
PROC: 3E0G8GC Introduction of Other Therapeutic Substance into Upper GI, Via Natural or Artificial Opening Endoscopic (ICD-10-PCS; 2018-07-30 14:00)
DX: K25.4 Chronic or unspecified gastric ulcer with hemorrhage (principal); D62 Acute posthemorrhagic anemia; I95.9 Hypotension, unspecified; E78.5 Hyperlipidemia, unspecified; I10 Essential (primary) hypertension; M19.90 Unspecified osteoarthritis, unspecified site; E11.9 Type 2 diabetes mellitus without complications; F17.200 Nicotine dependence, unspecified, uncomplicated; Z82.3 Family history of stroke; Z79.1 Long term (current) use of non-steroidal anti-inflammatories (NSAID); E87.6 Hypokalemia; Z79.84 Long term (current) use of oral hypoglycemic drugs; Z79.899 Other long term (current) drug therapy
CPT/HCPCS: 36415; 36430; 43236; 43255; 70450; 71045; 71046; 80048; 80053; 81001; 82550; 82553; 82803; 82962; 83735; 83880; 84484; 85025; 85027; 85379; 85610; 85730; 86850; 86900; 86901; 86920; 93005; 93010; 99291; J0171; J1200; J1610; J2250; J2310; J2405; J3010; J3490; J7040; P9016; S0164

== ENCOUNTER 2020-01-12 17:18 | Emergency (ER) | payer OTHER, MEDICARE ==
[2020-01-12] MEDS ORDERED: METHYLPREDNISOLONE INJ 40 MG/1 ML SDV IV ONE (17:31)
[2020-01-12] MEDS ORDERED: DIPHENHYDRAMINE HCL 50 MG/ML VIAL IV ONE (17:31)
[2020-01-12] MEDS ORDERED: FAMOTIDINE 20 MG TABLET PO ONE (17:31)
--- NOTE | 2020-01-12 17:34 | ER Document Report ---
ED Medical Screen (RME) - General Chief Complaint: Chemical Exposure in Eye Stated Complaint: EYES SWELLING Time Seen by Provider: 01/12/20 17:21 Primary Care Provider: TRACE,AGUSTÍN [Primary Care Provider] - Follow up as needed Mode of Arrival: Ambulatory Information source: Patient Notes: HPI; 74-year-old male past medical history significant for hypertension, diabete s presents to the emergency room complaining of eye and facial swelling that started earlier today. States he used a new form of hair dye last night and woke up this morning with swelling to his eyes. About an hour ago he noticed increasing swelling to his eyes and his face. He denies any shortness of breath, no difficulty breathing. Denies any visual changes. No new meds, no new foods. Patient is on lisinopril. PE: Alert and oriented x3 .PERRLA, EOMI Mild distress noted. Swelling noted to the bilateral eyes as well as the face. Lungs: Clear to auscultation without rales, rhonchi, wheezes. Heart: Regular rate rhythm without murmurs, rubs, gallops. I have greeted and performed a rapid initial assessment of this patient. A comprehensive ED assessment and evaluation of the patient, analysis of test results and completion of the medical decision making process will be conducted by additional ED providers. I have specifically instructed the patient or family members with the patient to immediately return to any nursing staff should anything change in the patient's condition or with their chief complaint. TRAVEL OUTSIDE OF THE [place] IN LAST 30 DAYS: No - Related Data Allergies/Adverse Reactions: No Known Allergies Allergy (Verified 07/29/18 15:21) Past Medical History - Past Medical History Cardiac Medical History: Reports: Hx Hypercholesterolemia, Hx Hypertension Neurological Medical History: Denies: Hx Seizures Endocrine Medical History: Reports: Hx Diabetes Mellitus Type 2 Renal/ Medical History: Denies: Hx Peritoneal Dialysis Malignancy Medical History: Reports Hx Prostate Cancer Musculoskeltal Medical History: Reports Hx Arthritis Past Surgical History: Reports: Hx Abdominal Surgery - Immunizations Hx Diphtheria, Pertussis, Tetanus Vaccination: Yes Doctor's Discharge - Discharge Referrals: [facility] [Primary [facility]] - Follow up as needed
[2020-01-12] MEDS ORDERED: DEXAMETHASONE SOD PHOS INJ 10 MG/1 ML VIAL IV ONE (18:04)
--- NOTE | 2020-01-12 18:09 | ER Document Report ---
ED General - General Chief Complaint: Facial Swelling Stated Complaint: EYES SWELLING Time Seen by Provider: 01/12/20 17:21 Primary Care Provider: TRACE,AGUSTÍN [Primary Care Provider] - Follow up as needed Mode of Arrival: Ambulatory Information source: Patient Notes: Patient is a 74-year-old -German male coming in today for possible allergic reaction. He presents with swelling around his eyes and upper part of his face. His history is that he used a new product to dye his hair last night. Woke up today and developed some swelling in his face. He does not have any rash anywhere else. He does not have any profound itching. He does not complain of any oropharyngeal swelling, difficulty breathing, difficulty swallowing. TRAVEL OUTSIDE OF THE [place] IN LAST 30 DAYS: No - Related Data Allergies/Adverse Reactions: No Known Allergies Allergy (Verified 07/29/18 15:21) Home Medications: lisopril, metformin Past Medical History - General Information source: Patient - Social History Smoking Status: Current Some Day Smoker Frequency of alcohol use: None Drug Abuse: None Family History: Reviewed & Not Pertinent - Past Medical History Cardiac Medical History: Reports: Hx Hypercholesterolemia, Hx Hypertension Neurological Medical History: Denies: Hx Seizures Endocrine Medical History: Reports: Hx Diabetes Mellitus Type 2 Renal/ Medical History: Denies: Hx Peritoneal Dialysis Malignancy Medical History: Reports Hx Prostate Cancer Musculoskeletal Medical History: Reports Hx Arthritis Psychiatric Medical History: Reports: Hx Depression Past Surgical History: Reports: Hx Abdominal Surgery - Immunizations Hx Diphtheria, Pertussis, Tetanus Vaccination: Yes Review of Systems - Review of Systems Notes: Constitutional: No fevers. No chills. EENT: No eye redness. No eye pain. No ear pain. No sore throat. Positive facial swelling Cardiovascular: No chest pain. No palpitations. Respiratory: No cough. No shortness of breath. No respiratory distress. Gastrointestinal: No abdominal pain. No nausea, vomiting, or diarrhea. Genitourinary: Atraumatic. No lesions. No pain. No discharge. Musculoskeletal: Atraumatic. No swelling. No deformities. Skin: No rash or lesions. Lymphatic: No swollen lymph nodes. Neurologic: No headache. No syncope. Psychiatric: No suicidal or homicidal ideation. Physical Exam - Notes Notes: General: Well-developed, well-nourished. In no acute distress. Non-toxic appearing. Cardiac: Well-perfused. Regular rate and rhythm. No murmurs, rubs, or gallops. Pulmonary: No respiratory distress. No cyanosis. Bilateral lung fiels are clear to auscultation. No respiratory distress Abdominal: Non-distended. Non-rigid. Bowels sounds are present in all four quadrants. No guarding or rebound. HEENT: Head is atraumatic. Conjunctivae not reddened. No tearing. PERRL. EOMI. Orbits atraumatic. Moderate periorbital and upper facial swelling. There is no perioral swelling. The lips and tongue are not swollen. There is no posterior pharyngeal swelling. Patient handling secretions well.. Oropharynx is without erythema, swelling, or exudates. Neck: Supple. No adenopathy. No meningismus. Dermatologic: Warm with good turgor. No rash. Atraumatic. No urticarial rash. Chest: Atraumatic. No chest wall tenderness to palpation. Musculoskeletal: Moves all extremities well. No range of motion deficits. no muscular or joint tenderness. No paraspinal muscle tenderness. no midline spinal tenderness or step-off. Genitourinary: Examination deferred Neurologic: No gross neurologic deficits. Psychiatric: Normal mood. Course - Re-evaluation Re-evalutation: 01/12/20 18:08 Swelling is isolated just around the eyes and face. There is no lip or tongue swelling. Orders were placed in pit for Benadryl, Decadron, and Pepcid. These have not been given yet. Awaiting meds. 01/12/20 19:22 Patient just had meds given. No appreciable change. 01/12/20 20:05 Interval improvement in symptoms. Especially noted there is quite a bit less swelling around the right eye. Patient notes that his skin feels a lot more loose in that area. He continues to be free from lip and tongue swelling. He still has no airway narrowing. Tolerating secretions perfectly well and is not having any respiratory symptoms. Medical ahead and give him 1 more dose of oral Benadryl and then discharge him home on a cocktail of Benadryl, Pepcid, and prednisone. He is advised if he gets increased swelling or if it starts to involve his lips tongue throat or breathing to return immediately to the hospital 01/12/20 20:07 Patient tells me that his brother is a local physician and he was told that his family has a predisposition to allergic reactions to hair dyes in the past Discharge - Discharge Clinical Impression: Allergic reaction Qualifiers: Encounter type: initial encounter Qualified Code(s): T78.40XA - Allergy, unspecified, initial encounter Condition: Good Disposition: HOME, SELF-CARE Instructions: Acute Allergic Reaction ([facility]) Additional Instructions: Avoid all hair dyes in the future. Take all medications as directed. Please return immediately to the emergency department if your swelling gets worse instead of better. Also if you start having swelling of the lips tongue throat or difficulty breathing come back to the emergency room immediately. Prescriptions: Diphenhydramine HCl [Benadryl 25 mg Capsule] 25 mg PO QID 5 Days #20 capsule Famotidine [Pepcid 20 mg Tablet] 20 mg PO BID 5 Days #10 tablet Prednisone 50 mg PO DAILY 5 Days #25 tablet Referrals: [facility] [Primary Care Provider] - 01/13/20
[2020-01-12] MEDS ORDERED: DIPHENHYDRAMINE HCL 25 MG CAPSULE PO ONE (20:07)
[2020-01-12 21:38] VITALS: BP 138/80
== END 2020-01-12 21:38 | disposition home or self-care (01) ==
LOC: ER 17:18
DX: T78.40XA Allergy, unspecified, initial encounter (principal); R22.0 Localized swelling, mass and lump, head; X58.XXXA Exposure to other specified factors, initial encounter; F17.200 Nicotine dependence, unspecified, uncomplicated; E11.9 Type 2 diabetes mellitus without complications; I10 Essential (primary) hypertension; Z79.899 Other long term (current) drug therapy; Z79.84 Long term (current) use of oral hypoglycemic drugs; Z85.46 Personal history of malignant neoplasm of prostate
CPT/HCPCS: 99284; 96374; 96375; J1200; J1100

== ENCOUNTER 2020-02-01 12:24 | Emergency (ER) | payer OTHER, MEDICARE ==
--- NOTE | 2020-02-01 12:41 | ER Document Report ---
ED Medical Screen (RME) - General Chief Complaint: Medical Complaint Stated Complaint: SUTURE PROBLEM Time Seen by Provider: 02/01/20 12:34 [facility] Provider: [facility] [Primary Care Provider] - Follow up as needed Mode of Arrival: Ambulatory Information source: Patient Notes: 74-year-old male presented to ED for complaint of nonhealing surgical wound to the scrotum 1 month ago at [place]. He states he had a penile implant reinserted. He states he has not been back to [place] and he does not know when he supposed to follow-up. He states about 12 days ago he fell down hill rolled over 5-year-old of [employer] and now his scrotum is wide open. He states he has been cleaning the wound with peroxide twice a day but needs to know what to do because it staying open. He states is noninflamed but it is open and needs something done about it. He is alert oriented respirations regular nonlabored speaking in full sentences. He states he does smoke a third a pack a day does not drink or do any illicit drugs. I have greeted and performed a rapid initial assessment of this patient. A comprehensive ED assessment and evaluation of the patient, analysis of test results and completion of medical decision making process will be conducted by an additional ED providers. TRAVEL OUTSIDE OF THE [place] IN LAST 30 DAYS: No - Related Data Allergies/Adverse Reactions: No Known Allergies Allergy (Verified 07/29/18 15:21) Past Medical History - Past Medical History Cardiac Medical History: Reports: Hx Hypercholesterolemia, Hx Hypertension Neurological Medical History: Denies: Hx Seizures Endocrine Medical History: Reports: Hx Diabetes Mellitus Type 2 Renal/ Medical History: Denies: Hx Peritoneal Dialysis Malignancy Medical History: Reports Hx Prostate Cancer Musculoskeltal Medical History: Reports Hx Arthritis Psychiatric Medical History: Reports: Hx Depression Past Surgical History: Reports: Hx Abdominal Surgery - Immunizations Hx Diphtheria, Pertussis, Tetanus Vaccination: Yes Physical Exam - Vital signs Vitals: Temp Pulse Resp BP Pulse Ox 99.1 F 122 H 16 130/66 H 99 02/01/20 12:30 02/01/20 12:30 02/01/20 12:30 02/01/20 12:30 02/01/20 12:30 Course - Vital Signs Vital signs: Temp Pulse Resp BP Pulse Ox 99.1 F 122 H 16 130/66 H 99 02/01/20 12:30 02/01/20 12:30 02/01/20 12:30 02/01/20 12:30 02/01/20 12:30 Doctor's Discharge - Discharge Referrals: [facility] [[facility] - Follow up as needed
--- NOTE | 2020-02-01 14:33 | ER Document Report ---
ED General - General Chief Complaint: Penile Problem Stated Complaint: SUTURE PROBLEM Time Seen by Provider: 02/01/20 12:34 Primary Care Provider: TRACE,AGUSTÍN [Primary Care Provider] - Follow up as needed Mode of Arrival: Ambulatory Notes: Patient is a 74-year-old white male with a history of diabetes and penile implant x2 who presents the emergency department the day with a chief complaint of complications status post penile implantation surgery. The patient reports that about 30 days ago at [facility] a urologist placed a penile implant. He states he was not aware that he was post to wait 2 weeks before doing any strenuous activities. He states shortly [place]. He states he did not suffer any specific wound at that time. He adds that he has been changing the bandage and was unsure what kind of dressings or tape to use and he suffered some superficial skin injury secondary to the tape. He states he noticed on Monday a hole in the left upper anterior scrotum looking through to the implant. He reports has been using peroxide on the wound and been dressing it without any improvement. States he has not followed up with the surgeon. He is not on any medications from the surgery currently. He denies any difficulty with urination. No drainage from the wound. Denies any significant redness or swelling. Denies any fever, chills or night sweats. No abdominal pain. No nausea, vomiting or diarrhea. Reports no pain. He states he is unsure if there were sutures that dissolved but he did have sutures in that area. States he did not return for any suture removal but that they are "gone". TRAVEL OUTSIDE OF THE [place] IN LAST 30 DAYS: No - Related Data Allergies/Adverse Reactions: No Known Allergies Allergy (Verified 02/01/20 13:59) Past Medical History - General Information source: Patient - Social History Smoking Status: Never Smoker Family History: Reviewed & Not Pertinent - Past Medical History Cardiac Medical History: Reports: Hx Hypercholesterolemia, Hx Hypertension Neurological Medical History: Denies: Hx Seizures Endocrine Medical History: Reports: Hx Diabetes Mellitus Type 2 Renal/ Medical History: Denies: Hx Peritoneal Dialysis Malignancy Medical History: Reports Hx Prostate Cancer Musculoskeletal Medical History: Reports Hx Arthritis Psychiatric Medical History: Reports: Hx Depression Past Surgical History: Reports: Hx Abdominal Surgery - Immunizations Hx Diphtheria, Pertussis, Tetanus Vaccination: Yes Review of Systems - Review of Systems Constitutional: denies: Fever EENT: denies: Throat pain Cardiovascular: denies: Syncope Respiratory: denies: Sputum Gastrointestinal: denies: Poor fluid intake Genitourinary: denies: Incontinence Male Genitourinary: denies: Testicular pain Musculoskeletal: denies: Muscle stiffness Skin: denies: Lesions Hematologic/Lymphatic: denies: Easy bruising Neurological/Psychological: denies: Paralysis Physical Exam - Vital signs Vitals: Temp Pulse Resp BP Pulse Ox 99.1 F 122 H 16 130/66 H 99 02/01/20 12:30 02/01/20 12:30 02/01/20 12:30 02/01/20 12:30 02/01/20 12:30 - General General appearance: Appears well, Alert In distress: None - Respiratory Respiratory status: No respiratory distress Chest status: Nontender Breath sounds: Normal Chest palpation: Normal - Cardiovascular Rhythm: Regular Heart sounds: Normal auscultation - Abdominal Inspection: Normal Distension: No distension Bowel sounds: Normal Tenderness: Nontender Organomegaly: No organomegaly - Genitourinary Notes: Wound dehiscence to the left anterior hemiscrotum just beneath the base of the penis, visualized portions of the implant through the wound noted. No drainage. No redness or swelling. Nontender to palpation. No penile discharge. No erythema. - Neurological Neuro grossly intact: Yes Cognition: Normal Orientation: AAOx4 - Psychological Associated symptoms: Normal affect, Normal mood - Skin Skin Color: Other - Normal exposed areas with exception of scrotum described above Course - Re-evaluation Re-evalutation: 02/01/20 14:33 Appears to have a wound dehiscence. Wound does not appear infected. Will order basic labs and call urology at [facility] for further guidance. 02/01/20 15:20 Repeat pulse rate 108. 02/01/20 16:08 4 PM spoke with the urologist at [facility], Dr. Soares. He agreed the patient would need to be transferred for surgical removal of the prosthesis. Patient is pending lactic acid at this time however does meet SIRS criteria has elevated white blood cell count and is being treated prophylactically has sepsis with flu ids, cultures and antibiotics. Pending the lactic acid Dr. Soares requested patient be transferred ED to ED. 02/01/20 16:17 [id number], Dr. Soares, urologist return call after speaking with staff at his facility and advised they would like to have further information before decision to accept to their facility for transfer. They have requested CT scan of the abdomen and pelvis with IV contrast and results of lactic acid. They are concerned given the rapid onset of leukocytosis over the past 3 to 4 days in the presence of the wound and want to ensure there is no evidence of necrotizing fasciitis. Of note there is no pain on exam less any pain out of proportion. There is no crepitus. No edema. No bullae or necrosis noted. Afebrile. Will obtain CT scan and results of lactic acid. Patient being covered for any possibilities of necrotizing fasciitis with prophylactic antibiotic regimen per up-to-date of Zosyn, vancomycin and clindamycin. 02/01/20 17:35 Called results of CAT scan and lactic acid to transfer center who communicated with Dr. Soares. They advised he will be the accepting physician. Patient is stable for transfer at this time. - Vital Signs Vital signs: Temp Pulse Resp BP Pulse Ox 99.1 F 108 H 16 130/66 H 99 02/01/20 12:30 02/01/20 14:52 02/01/20 12:30 02/01/20 12:30 02/01/20 12:30 - Laboratory Result Diagrams: 02/01/20 14:50 02/01/20 14:50 Laboratory results interpreted by me: 02/01/20 02/01/20 14:50 14:50 WBC 32.9 H* RBC 3.16 L Hgb 8.8 L Hct 26.5 L RDW 17.3 H Seg Neuts % (Manual) 90 H Lymphocytes % (Manual) 1 L Abs Neuts (Manual) 30.6 H Abs Lymphs (Manual) 0.3 L Abs Monocytes (Manual) 2.0 H Chloride 97 L BUN 25 H Creatinine 1.47 H Est GFR ( Amer) 57 L Est GFR (MDRD) Non-Af 47 L Total Protein 5.9 L Albumin 2.9 L Discharge - Discharge Clinical Impression: Post-operative infection Qualifiers: Encounter type: initial encounter Postoperative infection type: deep incisional surgical site Qualified Code(s): T81.42XA - Infection following a procedure, deep incisional surgical site, initial encounter Dehiscence of closure of skin Qualifiers: Encounter type: initial encounter Qualified Code(s): T81.31XA - Disruption of external operation (surgical) wound, not elsewhere classified, initial encounter Condition: Serious Disposition: [facility]: [facility] [[facility] - Follow up as needed
[2020-02-01 15:05] LABS: HEMATOCRIT 26.5 % (37.9-51.0); HEMOGLOBIN 8.8 g/dL (13.5-17.0); MEAN CORPUSCULAR HEMOGLOBIN 27.9 pg (27.0-33.4); MEAN CORPUSCULAR HGB CONC 33.3 g/dL (32.0-36.0); MEAN CORPUSCULAR VOLUME 84 fl (80-97); PLATELET COUNT 429 10^3/uL (150-450); RED BLOOD COUNT 3.16 10^6/uL (4.35-5.55); RED CELL DISTRIBUTION WIDTH 17.3 % (11.5-14.0)
[2020-02-01 15:19] LABS: ALBUMIN 2.9 g/dL (3.5-5.0); ALKALINE PHOSPHATASE 119 U/L (38-126); ANION GAP 13 (5-19); ASPARTATE AMINO TRANSFERASE 27 U/L (17-59); BILIRUBIN,DIRECT 0.4 mg/dL (0.0-0.4); BILIRUBIN,TOTAL 0.4 mg/dL (0.2-1.3); BLOOD UREA NITROGEN 25 mg/dL (7-20); CALCIUM 9.3 mg/dL (8.4-10.2); CARBON DIOXIDE 29 mmol/L (22-30); CHLORIDE 97 mmol/L (98-107); GLUCOSE 80 mg/dL (75-110); POTASSIUM 3.8 mmol/L (3.6-5.0); TOTAL PROTEIN 5.9 g/dL (6.3-8.2)
[2020-02-01 15:39] LABS: ABSOLUTE LYMPHOCYTES# (MANUAL) 0.3 10^3/uL (0.5-4.7); BAND NEUTROPHILS % (MANUAL) 3 % (3-5); BASOPHILS % (MANUAL) 0 % (0-2); EOSINOPHILS % (MANUAL) 0 % (0-6); LYMPHOCYTES % (MANUAL) 1 % (13-45); MONOCYTES % (MANUAL) 6 % (3-13); SEGMENTED NEUTROPHILS % (MAN) 90 % (42-78); TOTAL CELLS COUNTED 100
[2020-02-01 15:41] LABS: ANISOCYTOSIS 1+; OVALOCYTES SLIGHT; PLATELET COMMENT ADEQUATE; TARGET CELLS SLIGHT
[2020-02-01 15:44] LABS: WHITE BLOOD COUNT 32.9 10^3/uL (4.0-10.5)
[2020-02-01] MEDS ORDERED: PIPERACILLIN/TAZOBACTAM 3.375 GM VIAL IV ONE (15:49)
[2020-02-01] MEDS ORDERED: VANCOMYCIN HCL INJ 1000 MG VIAL IV ONE (16:21)
[2020-02-01] MEDS ORDERED: CLINDAMYCIN 900 MG/D5W RTU 900 MG/50 ML RTUPB IV ONE (16:22)
[2020-02-01] MEDS: NORMAL SALINE 1000 ML 1,000 ML IV PRN ×2 (16:29→17:57)
--- NOTE | 2020-02-01 17:26 | RADIOLOGY REPORT (SQ) ---
EXAM DESCRIPTION: CT ABD/PELVIS WITH IV ONLY IMAGES COMPLETED DATE/TIME: 02/01/2020 4:57 pm REASON FOR STUDY: scrotal wound s/p implant COMPARISON: None. TECHNIQUE: CT scan of the abdomen and pelvis performed using helical scanning technique with dynamic intravenous contrast injection. No oral contrast. Images reviewed with lung, soft tissue, and bone windows. Reconstructed coronal and sagittal MPR images reviewed. Delayed images for evaluation of the urinary system also acquired. All images stored on PACS. All CT scanners at this facility use dose modulation, iterative reconstruction, and/or weight based d osing when appropriate to reduce radiation dose to as low as reasonably achievable (ALARA). [facility]: Dose Right [facility]: CareDose [facility]: Dose Right [facility]: Teradose 4D [facility]: Zanbato CONTRAST TYPE AND DOSE: contrast/concentration: Isovue 300.00 mmol/ml; Total Contrast Delivered: 73. 0 ml; Total Saline Delivered: 66.0 ml RENAL FUNCTION: BUN 25; creatinine 1.47 RADIATION DOSE: CT Rad equipment meets quality standard of care and radiation dose reduction techniq ues were employed. CTDIvol: 4.8 - 5.4 mGy. DLP: 639 mGy-cm.. LIMITATIONS: None. FINDINGS: LOWER CHEST: No significant findings. No nodules or infiltrates. LIVER: Normal size. No masses. No dilated ducts. SPLEEN: Normal size. No focal lesions. PANCREAS: No masses. No significant calcifications. No adjacent inflammation or peripancreatic fluid collections. Pancreatic duct not dilated. GALLBLADDER: No identified stones by CT criteria. No inflammatory changes to suggest cholecystitis. ADRENAL GLANDS: No significant masses or asymmetry. RIGHT KIDNEY AND URETER: No solid masses. No significant calcification. No hydronephrosis or hydroure ter. LEFT KIDNEY AND URETER: No solid masses. No significant calcification. Simple cysts. No hydronephro sis or hydroureter. AORTA AND VESSELS: No aneurysm. No dissection. Renal arteries, SMA, celiac without stenosis. RETROPERITONEUM: No retroperitoneal adenopathy, hemorrhage or masses. BOWEL AND PERITONEAL CAVITY: No masses or inflammatory changes. No free fluid or peritoneal masses. APPENDIX: Normal. PELVIS: No mass. No free fluid. Normal bladder. Status post prostatectomy. A penile implant is in place. The scrotum is not well evaluated. ABDOMINAL WALL: No masses. No hernias. BONES: No significant or acute findings. Moderate multilevel degenerative changes are present in the spine, most pronounced at L2-L3. There is grade 1 anterolisthesis of L4 and L5 on the basis of facet degenerative changes. OTHER: No other significant finding. IMPRESSION: No acute inflammatory changes in the abdomen or pelvis. TECHNICAL DOCUMENTATION: JOB ID: [id number] Quality ID # [id number]: Final reports with documentation of one or more dose reduction techniques (e.g., Au tomated exposure control, adjustment of the mA and/or kV according to patient size, use of iterative reconstruction technique) 2010 [employer]- All Rights Reserved Reading location - IP/workstation name: [email or web address]
[2020-02-01] MEDS ORDERED: ONDANSETRON HCL INJ/PF 4 MG/2 ML SDV IV ONE (17:38)
[2020-02-01] MEDS ORDERED: MORPHINE SULFATE 10 MG/ML INJ IV ONE (17:38)
[2020-02-01] MEDS ORDERED: VANCOMYCIN HCL INJ 1000 MG VIAL ONE (18:23)
[2020-02-01 19:53] VITALS: BP 112/65
[2020-02-03 14:12] LABS: PATH REVIEW PATHOLOGIST REVIEWED
== END 2020-02-01 19:54 | disposition short-term general hospital (02) ==
LOC: ER 12:24
DX: T81.42XA Infection following a procedure, deep incisional surgical site, initial encounter (principal); N49.2 Inflammatory disorders of scrotum; T81.31XA Disruption of external operation (surgical) wound, not elsewhere classified, initial encounter; Y83.8 Other surgical procedures as the cause of abnormal reaction of the patient, or of later complication, without mention of misadventure at the time of the procedure; E11.9 Type 2 diabetes mellitus without complications; I10 Essential (primary) hypertension; Z85.46 Personal history of malignant neoplasm of prostate
CPT/HCPCS: 99285; 96361; 96375; 96365; 96367; 36415; 87040; 83605; 85025; 80053; 74177; J3490; J2270; J2405; J7030; J3370; J2543